=== PATIENT | female | born 1950 | race Caucasian/White ===

== ENCOUNTER → 2016-07-16 | Outpatient (CLI) | payer MEDICARE, OTHER | LOC: RAD 14:32 | PROVIDERS: ATTEND Internal Medicine | DX: R51 Headache (principal) | CPT/HCPCS: 70450 ==

== ENCOUNTER → 2016-09-06 | Outpatient (CLI) | payer MEDICARE, OTHER | LOC: RAD 08:22 | PROVIDERS: ATTEND Internal Medicine | DX: K86.1 Other chronic pancreatitis (principal); K42.9 Umbilical hernia without obstruction or gangrene | CPT/HCPCS: 74150 ==

== ENCOUNTER → 2017-11-27 | Outpatient (CLI) | payer MEDICARE, OTHER ==
--- NOTE | 2017-11-27 09:23 | RADIOLOGY REPORT (SQ) ---
EXAM DESCRIPTION: CT CHEST WITHOUT COMPLETED DATE/TIME: 11/27/2017 8:00 am REASON FOR STUDY: PULMONARY INFILTRATE (R91.8) R91.8 OTHER NONSPECIFIC ABNORMAL FINDING OF LUNG FIE LD COMPARISON: 10/23/2011 TECHNIQUE: CT scan performed of the chest without intravenous contrast. Images reviewed with lung, soft tissue and bone windows. Reconstructed coronal and sagittal MPR images reviewed. All images st ored on PACS. All CT scanners at this facility use dose modulation, iterative reconstruction, and/or weight based d osing when appropriate to reduce radiation dose to as low as reasonably achievable (ALARA). [facility]: Dose Right [facility]: CareDose [facility]: Dose Right [facility]: Teradose 4D [facility]: [employer] RADIATION DOSE: CT Rad equipment meets quality standard of care and radiation dose reduction techniq ues were employed. CTDIvol: 13.3 mGy. DLP: 483 mGy-cm. mGy. LIMITATIONS: No technical limitations. FINDINGS: LUNGS AND PLEURA: Subsegmental airspace disease in the right upper lobe. There is a backg round of chronic scarring in the right upper lobe. Stable mild bronchiectasis right lower lobe. No fibrosis. No effusions. HILAR AND MEDIASTINAL STRUCTURES: Calcified mediastinal and right hilar nodes. HEART AND VASCULAR STRUCTURES: No aneurysm. No pericardial effusion. UPPER ABDOMEN: No significant findings. Limited exam. THYROID AND OTHER SOFT TISSUES: No masses. No adenopathy. BONES: No significant finding. HARDWARE: None in the chest. OTHER: No other significant findings. IMPRESSION: Increasing airspace disease in the right upper lobe on a background of chronic changes. In the appropriate clinical setting this is consistent with superimposed pneumonia. TECHNICAL DOCUMENTATION: JOB ID: [id number] Quality ID # [id number]: Final reports with documentation of one or more dose reduction techniques (e.g., Au tomated exposure control, adjustment of the mA and/or kV according to patient size, use of iterative reconstruction technique) 2010 [employer]- All Rights Reserved Reading location - IP/workstation name: [email or web address]
== END ==
LOC: RAD 07:31
PROVIDERS: ATTEND Internal Medicine Critical Care Medicine
DX: R91.8 Other nonspecific abnormal finding of lung field (principal)
CPT/HCPCS: 71250

== ENCOUNTER → 2018-01-13 | Outpatient (CLI) | payer MEDICARE, OTHER ==
--- NOTE | 2018-01-13 15:25 | RADIOLOGY REPORT (SQ) ---
EXAM DESCRIPTION: CHEST 2 VIEWS COMPLETED DATE/TIME: 01/13/2018 2:27 pm REASON FOR STUDY: COUGH R05 SOB R06.02 COMPARISON: 10/22/2014 EXAM PARAMETERS: NUMBER OF VIEWS: two views TECHNIQUE: Digital Frontal and Lateral radiographic views of the chest acquired. RADIATION DOSE: NA LIMITATIONS: none FINDINGS: LUNGS AND PLEURA: Stable subsegmental linear opacities in the right mid-lower lung zone m ay represent atelectasis or scar. The left lung is clear. Linear opaque density overlies the proxim al in of the left clavicle may be osseous origin. No pneumothorax or pleural effusion. MEDIASTINUM AND HILAR STRUCTURES: No masses or contour abnormalities. HEART AND VASCULAR STRUCTURES: Heart normal size. No evidence for failure. BONES: No acute findings. HARDWARE: None in the chest. OTHER: No other significant finding. IMPRESSION: 1 NO ACUTE RADIOGRAPHIC FINDING IN THE CHEST. Stable linear subsegmental atelectasis or scar in the right mid-lower lung zones since the prior study dated 10/22/2014. TECHNICAL DOCUMENTATION: JOB ID: [id number] [employer]- All Rights Reserved Reading location - IP/workstation name: [email or web address]
== END ==
LOC: RAD 13:55
PROVIDERS: ATTEND Physician Assistant Medical
DX: R06.02 Shortness of breath (principal); R05 Cough
CPT/HCPCS: 71046

== ENCOUNTER → 2018-02-10 | Outpatient (CLI) | payer MEDICARE, OTHER ==
--- NOTE | 2018-02-10 11:50 | WOMENS IMAGING REPORT ---
EXAM DESCRIPTION: U/S EXTREMITY NONVASCULAR COMP COMPLETED DATE/TIME: 02/10/2018 11:09 am REASON FOR STUDY: R22.31 R22.31 LOCALIZED SWELLING, MASS AND LUMP, RIGHT UPPER LIMB COMPARISON: None. TECHNIQUE: Static and real time mac scale ultrasound Doppler spectral analysis, and color Doppler a cquired in the area of the RIGHT elbow. LIMITATIONS: None. FINDINGS: The anterior aspect of the right elbow was scanned (in the area of clinical concern). No solid or cystic masses visualized sonographically. Left elbow was scanned in the same area for comparison purposes. No abnormality visualized. IMPRESSION: 1. NO SIGNIFICANT FINDING IN THE anterior aspect of the Right elbow. Correlation sugges wilma in view of the given history. TECHNICAL DOCUMENTATION: JOB ID: [id number] [employer]- All Rights Reserved Reading location - IP/workstation name: [email or web address]
== END ==
LOC: WI 10:44
PROVIDERS: ATTEND Internal Medicine
DX: R22.31 Localized swelling, mass and lump, right upper limb (principal)
CPT/HCPCS: 76881

== ENCOUNTER → 2018-05-06 | Outpatient (CLI) | payer MEDICARE, OTHER ==
--- NOTE | 2018-05-06 11:45 | RADIOLOGY REPORT (SQ) ---
EXAM DESCRIPTION: CT CHEST WITHOUT COMPLETED DATE/TIME: 05/06/2018 10:10 am REASON FOR STUDY: OTHER DISORDERS OF LUNG (J98.4) J98.4 OTHER DISORDERS OF LUNG COMPARISON: 11/27/2017 TECHNIQUE: CT scan performed of the chest without intravenous contrast. Images reviewed with lung, soft tissue and bone windows. Reconstructed coronal and sagittal MPR images reviewed. All images st ored on PACS. All CT scanners at this facility use dose modulation, iterative reconstruction, and/or weight based d osing when appropriate to reduce radiation dose to as low as reasonably achievable (ALARA). [facility]: Dose Right [facility]: CareDose [facility]: Dose Right [facility]: Teradose 4D [facility]: [employer] RADIATION DOSE: CT Rad equipment meets quality standard of care and radiation dose reduction techniq ues were employed. CTDIvol: 15.2 mGy. DLP: 583 mGy-cm. mGy. LIMITATIONS: No technical limitations. FINDINGS: LUNGS AND PLEURA: Stable areas of peripheral scarring in both lungs. Chronic elevation le ft diaphragm. No effusions. HILAR AND MEDIASTINAL STRUCTURES: Calcified mediastinal and right hilar nodes. HEART AND VASCULAR STRUCTURES: No aneurysm. No pericardial effusion. UPPER ABDOMEN: No significant findings. Limited exam. THYROID AND OTHER SOFT TISSUES: No acute findings. BONES: No significant finding. HARDWARE: None in the chest. OTHER: No other significant findings. IMPRESSION: Stable, chronic changes. TECHNICAL DOCUMENTATION: JOB ID: [id number] Quality ID # [id number]: Final reports with documentation of one or more dose reduction techniques (e.g., Au tomated exposure control, adjustment of the mA and/or kV according to patient size, use of iterative reconstruction technique) 2010 [employer]- All Rights Reserved Reading location - IP/workstation name: [email or web address]
== END ==
LOC: RAD 09:53
PROVIDERS: ATTEND Internal Medicine Critical Care Medicine
DX: J98.4 Other disorders of lung (principal)
CPT/HCPCS: 71250

== ENCOUNTER 2019-10-15 16:30 | Inpatient (IN) | payer MEDICARE, OTHER ==
[2019-10-15] MEDS ORDERED: CEFTRIAXONE 2 GM/D5W RTU 2 GM/50 ML RTUPB IV ONE (17:02)
[2019-10-15] MEDS: NORMAL SALINE 1000 ML 1,000 ML IV PRN ×2 (17:05→18:09)
[2019-10-15 17:23] LABS: VENOUS BLOOD BASE EXCESS 26.4 mmol/L; VENOUS BLOOD HCO3 53.6 mmol/L (20-32); VENOUS BLOOD PH 7.58 (7.30-7.42)
[2019-10-15 17:28] LABS: APPEARANCE,URINE SLIGHTLY-CLOUDY; BILIRUBIN,URINE NEGATIVE (NEGATIVE); COLOR,URINE YELLOW; GLUCOSE, URINE NEGATIVE (NEGATIVE); KETONES,URINE NEGATIVE (NEGATIVE); LEUKOCYTE ESTERASE,URINE MODERATE (NEGATIVE); NITRITE,URINE NEGATIVE (NEGATIVE); PROTEIN,URINE 100 mg/dL (NEGATIVE); URINE SPECIFIC GRAVITY 1.013; UROBILINOGEN,URINE NEGATIVE mg/dL (<2.0)
[2019-10-15 17:30] LABS: ALKALINE PHOSPHATASE 115 U/L (38-126); ASPARTATE AMINO TRANSFERASE 76 U/L (14-36); BILIRUBIN,DIRECT 0.3 mg/dL (0.0-0.4); BLOOD UREA NITROGEN 98 mg/dL (7-20); CALCIUM 7.9 mg/dL (8.4-10.2); CHLORIDE 59 mmol/L (98-107); GLUCOSE 156 mg/dL (75-110); TOTAL PROTEIN 7.3 g/dL (6.3-8.2)
--- NOTE | 2019-10-15 17:48 | RADIOLOGY REPORT (SQ) ---
EXAM DESCRIPTION: CHEST SINGLE VIEW IMAGES COMPLETED DATE/TIME: 10/15/2019 5:37 pm REASON FOR STUDY: fever COMPARISON: 01/13/2018 EXAM PARAMETERS: NUMBER OF VIEWS: One view. TECHNIQUE: Single frontal radiographic view of the chest acquired. RADIATION DOSE: NA LIMITATIONS: None. FINDINGS: LUNGS AND PLEURA: Parenchymal opacity at the left base with left effusion. MEDIASTINUM AND HILAR STRUCTURES: No masses. Contour normal. HEART AND VASCULAR STRUCTURES: Heart normal in size. Normal vasculature. BONES: No acute findings. HARDWARE: None in the chest. OTHER: No other significant finding. IMPRESSION: Left effusion and parenchymal opacity. TECHNICAL DOCUMENTATION: JOB ID: [id number] 2010 [employer]- All Rights Reserved Reading location - IP/workstation name: [email or web address]
[2019-10-15 17:49] LABS: ANION GAP 17 (5-19); HEMATOCRIT 47.5 % (36.0-47.0); HEMOGLOBIN 16.4 g/dL (12.0-15.5); MEAN CORPUSCULAR HEMOGLOBIN 31.1 pg (27.0-33.4); MEAN CORPUSCULAR HGB CONC 34.5 g/dL (32.0-36.0); MEAN CORPUSCULAR VOLUME 90 fl (80-97); PLATELET COUNT 431 10^3/uL (150-450); POTASSIUM 2.1 mmol/L (3.6-5.0); RED BLOOD COUNT 5.26 10^6/uL (3.72-5.28); RED CELL DISTRIBUTION WIDTH 14.4 % (11.5-14.0); WHITE BLOOD COUNT 20.9 10^3/uL (4.0-10.5)
[2019-10-15 17:50] LABS: CARBON DIOXIDE 53 mmol/L (22-30)
--- NOTE | 2019-10-15 17:50 | RADIOLOGY REPORT (SQ) ---
EXAM DESCRIPTION: CT HEAD WITHOUT IMAGES COMPLETED DATE/TIME: 10/15/2019 5:37 pm REASON FOR STUDY: aloc COMPARISON: 07/16/2016 TECHNIQUE: Axial images acquired through the brain without intravenous contrast. Images reviewed wi th bone, brain and subdural windows. Additional sagittal and coronal reconstructions were generated. Images stored on PACS. All CT scanners at this facility use dose modulation, iterative reconstruction, and/or weight based d osing when appropriate to reduce radiation dose to as low as reasonably achievable (ALARA). [facility]: Dose Right [facility]: CareDose [facility]: Dose Right [facility]: Teradose 4D [facility]: [employer] RADIATION DOSE: CT Rad equipment meets quality standard of care and radiation dose reduction techniq ues were employed. CTDIvol: 53.2 mGy. DLP: 964 mGy-cm. mGy. LIMITATIONS: None. FINDINGS: VENTRICLES: Normal size and contour. CEREBRUM: No masses. No hemorrhage. No midline shift. No evidence for acute infarction. Normal gra y/white matter differentiation. No areas of low density in the white matter. CEREBELLUM: No masses. No hemorrhage. No alteration of density. No evidence for acute infarction. EXTRAAXIAL SPACES: No fluid collections. No masses. ORBITS AND GLOBE: No intra- or extraconal masses. Normal contour of globe without masses. CALVARIUM: No fracture. PARANASAL SINUSES: No fluid or mucosal thickening. SOFT TISSUES: No mass or hematoma. OTHER: No other significant finding. IMPRESSION: NORMAL BRAIN CT WITHOUT CONTRAST. EVIDENCE OF ACUTE STROKE: NO. COMMENT: Quality ID # [id number]: Final reports with documentation of one or more dose reduction techniques (e.g., Automated exposure control, adjustment of the mA and/or kV according to patient size, use of iterative reconstruction technique) TECHNICAL DOCUMENTATION: JOB ID: [id number] 2010 [employer]- All Rights Reserved Reading location - IP/workstation name: [email or web address]
[2019-10-15 17:57] LABS: CREATINE KINASE 5651 U/L (30-135)
[2019-10-15] MEDS ORDERED: POTASSI CL 20 MEQ/50 ML RIDER 20 MEQ/50 ML RTUPB IV ONE (18:00)
[2019-10-15] MEDS ORDERED: CEFEPIME 1 GM/D5W RTU 1 GM/50 ML RTUPB IV ONE (18:02)
--- NOTE | 2019-10-15 18:13 | ER Document Report ---
Entered by HERBERTH EDGE SCRIBE 10/15/19 [id number] Acting as scribe for:DEBRA HERNANDEZ DO ED General - General Chief Complaint: Unresponsive Stated Complaint: UNRESPONSIVE Time Seen by Provider: 10/15/19 16:59 Information source: Emergency Med Personnel Cannot obtain history due to: Unstable vital signs Notes: This 69-year-old female presents to the emergency department via EMS unresponsive. As per family, patient has chronic respiratory failure. Patient went to see her physician three days ago. Family stated that she was prescribed lasix for her lower extremity swelling. Patient was reportedly "delusional" two days ago and has been unresponsive since yesterday morning. Patient is on 3 L of oxygen at home. A full HPI is unobtainable due to patient condition. TRAVEL OUTSIDE OF THE [place] IN LAST 30 DAYS: No - Related Data Allergies/Adverse Reactions: codeine Allergy (Severe, Verified 10/15/19 17:45) Hives Iodinated Contrast Media [IV Dye, Iodine Containing] Allergy (Severe, Verified 10/23/11 08:19) Anaphylaxis Penicillins Allergy (Verified 02/24/12 08:03) Sulfa (Sulfonamide Antibiotics) Allergy (Verified 02/24/12 08:03) Past Medical History - General Cannot obtain history due to: Unstable vital signs - Social History Smoking Status: Unknown if Ever Smoked Family History: Reviewed & Not Pertinent Pulmonary Medical History: Reports: Hx COPD Past Surgical History: Reports: Hx Cardiac Surgery - stent placed Review of Systems - Review of Systems -: Yes ROS unobtainable due to patient's medical condition Physical Exam - Vital signs Vitals: Resp BP Pulse Ox 33 H 81/51 L 94 10/15/19 16:49 10/15/19 16:49 10/15/19 16:49 - Notes Notes: Physical Exam: General: Alert, appears older than stated age. Disheveled and Unkempt. HEENT: Atraumatic. PERRL. Extraocular movements intact. Oropharynx clear. Dry mucous membranes with thrush. Neck: Supple. Non-tender. Respiratory: No respiratory distress. Diminished breath sounds bilaterally but equal. Cardiovascular: Regular rate and rhythm. Abdominal: Morbidly Obese. Non-tender. No distension. Normal Bowel Sounds. Back: No gross abnormalities. Extremities: Moves all four extremities. Upper extremities: Normal inspection. Normal ROM. Lower extremities: Normal inspection. No edema. Normal ROM. Neurological: Responds to a spoken voice. Skin: Warm. Dry. Normal color. Course - Re-evaluation Re-evalutation: 10/15/19 18:17 MDM 69 year old female with multiple medical problems arrives from home with illness worsening over about 2 days. Poor po intake and poorly responsive at home for a day. Febrile upon arrival and Urine appears concentrated with acute kidney injury. Also left lung effusion adn ? infiltrate. Stage 1 decub on buttocks and electrolyte abnormality. Spoke with hospitalist team and Dr. Barnett will graciously see and evaluate for admission. - Vital Signs Vital signs: Temp Pulse Resp BP Pulse Ox 27 H 123/56 L 98 10/15/19 19:01 10/15/19 19:00 10/15/19 19:01 - Laboratory Result Diagrams: 10/15/19 17:00 10/15/19 17:00 Laboratory results interpreted by me: 10/15/19 10/15/19 10/15/19 16:58 17:00 17:00 WBC 20.9 H Hgb 16.4 H Hct 47.5 H RDW 14.4 H Seg Neuts % (Manual) 83 H Band Neutrophils % 1 L Lymphocytes % (Manual) 10 L Monocytes % (Manual) 2 L Abs Neuts (Manual) 17.6 H VBG pH VBG HCO3 Sodium 128.6 L Potassium 2.1 L* Chloride 59 L Carbon Dioxide 53 H* BUN 98 H Creatinine 3.84 H Est GFR ( Amer) 14 L Est GFR (MDRD) Non-Af 12 L Glucose 156 H Calcium 7.9 L Magnesium 4.6 H* AST 76 H Creatine Kinase 5651 H Urine Protein 100 H Urine Blood SMALL H Ur Leukocyte Esterase MODERATE H 10/15/19 17:00 WBC Hgb Hct RDW Seg Neuts % (Manual) Band Neutrophils % Lymphocytes % (Manual) Monocytes % (Manual) Abs Neuts (Manual) VBG pH 7.58 H VBG HCO3 53.6 H Sodium Potassium Chloride Carbon Dioxide BUN Creatinine Est GFR ( Amer) Est GFR (MDRD) Non-Af Glucose Calcium Magnesium AST Creatine Kinase Urine Protein Urine Blood Ur Leukocyte Esterase - Diagnostic Test Radiology reviewed: Image reviewed, Reports reviewed - EKG Interpretation by Me EKG shows normal: Sinus rhythm Rhythm: NSR - NSR L axis 82 BPM Poor R wave progression no st elevation or dep ression my interpretation. [place]rombie/QRS: Left axis deviation Critical Care Note - Critical Care Note Total time excluding time spent on procedures (mins): 30 Discharge - Discharge Clinical Impression: Acute kidney injury, Encephalopathy acute, Hypokalemia UTI (urinary tract infection) Qualifiers: Urinary tract infection type: site unspecified Hematuria presence: with hematuria Qualified Code(s): N39.0 - Urinary tract infection, site not specified Rhabdomyolysis Qualifiers: Rhabdomyolysis type: non-traumatic Qualified Code(s): M62.82 - Rhabdomyolysis Condition: Critical Disposition: ADMITTED INPATIENT Admitting Provider: Anibal Unit Admitted: IMCU I personally performed the services described in the documentation, reviewed and edited the documentation which was dictated to the scribe in my presence, and it accurately records my words and actions.
[2019-10-15] MEDS ORDERED: ONDANSETRON HCL INJ/PF 4 MG/2 ML SDV IV PRN (18:56)
[2019-10-15] MEDS ORDERED: ACETAMINOPHEN 325 MG TABLET PO PRN (18:56)
[2019-10-15] MEDS ORDERED: IPRATROPIUM/ALBUTEROL 0.5-2.5 MG/3 ML AMPUL NEB PRN (18:56)
[2019-10-15] MEDS ORDERED: RINGERS SOLUTION,LACTATED 1,000 ML IV PRN (18:56)
[2019-10-15] MEDS ORDERED: ONDANSETRON 4 MG TAB.RAPDIS PO PRN (18:56)
[2019-10-15 19:04] LABS: ABSOLUTE LYMPHOCYTES# (MANUAL) 2.9 10^3/uL (0.5-4.7); ABSOLUTE MONOCYTES # (MANUAL) 0.4 10^3/uL (0.1-1.4); BAND NEUTROPHILS % (MANUAL) 1 % (3-5); BASOPHILS % (MANUAL) 0 % (0-2); EOSINOPHILS % (MANUAL) 0 % (0-6); LYMPHOCYTES % (MANUAL) 10 % (13-45); MONOCYTES % (MANUAL) 2 % (3-13); SEGMENTED NEUTROPHILS % (MAN) 83 % (42-78); TOTAL CELLS COUNTED 100
[2019-10-15 19:08] LABS: ANISOCYTOSIS SLIGHT; OVALOCYTES SLIGHT; PLATELET COMMENT ADEQUATE; PLATELET LARGE PRESENT; POIKILOCYTOSIS SLIGHT
--- NOTE | 2019-10-15 19:14 | PDOC H&P ---
History of Present Illness Admission Date/PCP: 10/15/19 18:41 ELEANOR LOCKWOOD MD History of Present Illness: NATTY KHAN is a 69 year old female with past medical history of CAD, HTN, CO PD on chronic 3 L nasal cannula, recurrent UTIs, chronic pain, chronic BLE edema who presented via EMS after family noticed patient became unresponsive 2 days [employer] IN [employer]. 3 days [employer] IN [employer] patient's PCP prescribed Lasix for her lower extremity edema, the next day she became unresponsive and family waited to see if she would become more responsive. When she did not become responsive over the next 2 days, family called EMS who brought patient to ED. She was found have severe CELESTINO, UTI, rhabdomyolysis with CK of 5600, stage I decubitus ulcer POA and was persistently somnolent. Potassium was extremely low and she was given runs of potassium and bicarb in the ER. Family members each stated they wanted patient to be full code. Of note, she is on multiple sedating medications including narcotics and Seroquel all of which have been held on admission. She will be admitted to [facility] with telemetry. Past Medical History Cardiac Medical History: Reports: Congestive Heart Failure, Hyperlipidema, Hypertension Pulmonary Medical History: Reports: Chronic Obstructive Pulmonary Disease (COPD) Past Surgical History Past Surgical History: Reports: Appendectomy, Cholecystectomy Social History Information Source: Emergency Med Personnel, [facility], 1928–1983 Records Lives with: Family Smoking Status: Former Smoker Electronic Cigarette use?: No - Advance Directive Resuscitation Status: Full Code Surrogate healthcare decision maker:: Spouse Family History Family History: Reviewed & Not Pertinent Parental Family History Reviewed: No Children Family History Reviewed: No Sibling(s) Family History Reviewed.: No Medication/Allergy Home Medications: Butalb/Acetaminophen/Caffeine [Fioricet (50-325-40 mg) Tablet] 1 tab PO DAILY PRN 10/15/19 Clopidogrel Bisulfate [Plavix 75 mg Tablet] 75 mg PO DAILY 10/15/19 Ergocalciferol (Vitamin D2) [Vitamin D2] 1 cap PO ONCE 10/15/19 Ergocalciferol (Vitamin D2) [Vitamin D2] 1 cap PO Q1 10/15/19 Estrogens,Conjugated [Premarin 0.3 Mg Tablet] 0.3 mg PO DAILY 10/15/19 Furosemide [Lasix 40 mg Tablet] 40 mg PO BID 10/15/19 Isosorbide Mononitrate [Imdur 30 mg Tablet.er] 30 mg PO DAILY 10/15/19 Levothyroxine Sodium 75 mcg PO DAILY 10/15/19 Lipase/Protease/Amylase [Creon Dr 6,000 Units Capsule] 6 cap PO TID 10/15/19 Loratadine [Claritin] 10 mg PO DAILY 10/15/19 Metoprolol Tartrate [Lopressor 50 mg Tablet] 50 mg PO BID 10/15/19 Oxybutynin Chloride [Oxybutynin Chloride ER] 5 mg PO DAILY 10/15/19 Oxycodone HCl [Oxycodone HCl ER] 15 mg PO TID PRN 10/15/19 Pantoprazole Sodium 40 mg PO DAILY 10/15/19 Promethazine HCl [Phenergan 25 mg Tablet] 25 mg PO DAILY PRN 10/15/19 Quetiapine Fumarate [Quetiapine Fumarate ER] 400 mg PO QHS 10/15/19 Ranolazine [Ranexa] 1,000 mg PO BID 10/15/19 Rosuvastatin Calcium [Crestor] 20 mg PO DAILY 10/15/19 Allergies/Adverse Reactions: codeine Allergy (Severe, Verified 10/15/19 17:45) Hives Iodinated Contrast Media [IV Dye, Iodine Containing] Allergy (Severe, Verified 10/23/11 08:19) Anaphylaxis Penicillins Allergy (Verified 02/24/12 08:03) Sulfa (Sulfonamide Antibiotics) Allergy (Verified 02/24/12 08:03) Review of Systems All systems: reviewed and no additional remarkable complaints except as stated - Review of systems unobtainable due to patient's altered mental status and inability to answer questions. Physical Exam Vital Signs: Temp Pulse Resp BP Pulse Ox 29 H 133/61 H 97 10/15/19 18:30 10/15/19 18:30 10/15/19 18:30 Intake & Output 10/14/19 10/15/19 10/16/19 06:59 06:59 06:59 Intake Total 1050 Balance 1050 Weight 90.6 kg General appearance: PRESENT: no acute distress, cooperative, disheveled, obese Head exam: PRESENT: atraumatic, normocephalic Eye exam: PRESENT: conjunctiva pink Mouth exam: PRESENT: moist Respiratory exam: PRESENT: crackles - Very scant crackles at left base otherwise clear, no wheezing. ABSENT: rales, rhonchi, wheezes Cardiovascular exam: PRESENT: RRR. ABSENT: diastolic murmur, rubs, systolic murmur GI/Abdominal exam: PRESENT: normal bowel sounds, soft. ABSENT: distended, guard ing, mass, organolmegaly, rebound, tenderness Rectal exam: PRESENT: deferred Extremities exam: PRESENT: pedal edema Neurological exam: PRESENT: altered. ABSENT: alert, awake, oriented to person, oriented to place, oriented to time, oriented to situation Skin exam: PRESENT: dry, intact, warm, other - Stage I sacral decubitus ulcer Results Laboratory Results: 10/15/19 17:00 10/15/19 10/15/19 10/15/19 16:58 17:00 17:00 Seg Neutrophils % Not Reportable VBG pH VBG pCO2 VBG HCO3 VBG Base Excess Sodium 128.6 L Potassium 2.1 L* Chloride 59 L Carbon Dioxide 53 H* Anion Gap 17 BUN 98 H Creatinine 3.84 H Est GFR ( Amer) 14 L Glucose 156 H Lactic Acid Calcium 7.9 L Magnesium 4.6 H* Total Bilirubin 1.0 AST 76 H Alkaline Phosphatase 115 Total Protein 7.3 Albumin 4.0 Urine Color YELLOW Urine Appearance SLIGHTLY-CLOUDY Urine pH 7.0 Ur Specific [place] 1.013 Urine Protein 100 H Urine Glucose (UA) NEGATIVE Urine Ketones NEGATIVE Urine Blood SMALL H Urine Nitrite NEGATIVE Ur Leukocyte Esterase MODERATE H Urine WBC (Auto) 30 Urine RBC (Auto) 9 10/15/19 10/15/19 17:00 17:00 Seg Neutrophils % VBG pH 7.58 H VBG pCO2 59.0 VBG HCO3 53.6 H VBG Base Excess 26.4 Sodium Potassium Chloride Carbon Dioxide Anion Gap BUN Creatinine Est GFR ( Amer) Glucose Lactic Acid 2.1 Calcium Magnesium Total Bilirubin AST Alkaline Phosphatase Total Protein Albumin Urine Color Urine Appearance Urine pH Ur Specific [place] Urine Protein Urine Glucose (UA) Urine Ketones Urine Blood Urine Nitrite Ur Leukocyte Esterase Urine WBC (Auto) Urine RBC (Auto) 10/15/19 17:00 Creatine Kinase 5651 H Impressions: Chest X-Ray 10/15/19 17:00 IMPRESSION: Left effusion and parenchymal opacity. Head CT 10/15/19 17:01 IMPRESSION: NORMAL BRAIN CT WITHOUT CONTRAST. EVIDENCE OF ACUTE STROKE: NO. Assessment and Plan - Diagnosis (1) Acute metabolic encephalopathy Is this a current diagnosis for this admission?: Yes Plan: Likely source is UTI and severe dehydration Treat underlying sources with IV fluids and antibiotics Check ammonia CT head did not show acute abnormalities Maintain oxygen saturation 89 to 94% and patient with COPD on chronic 3 L nasal cannula at home (2) Acute kidney injury Is this a current diagnosis for this admission?: Yes Plan: Creatinine significantly elevated on admission Highly suspect prerenal etiology given she was just started on Lasix IV fluids, cautiously Trend BMP (3) UTI (urinary tract infection) Qualifiers: Urinary tract infection type: site unspecified Hematuria presence: with hematuria Qualified Code(s): N39.0 - Urinary tract infection, site not specified; R31.9 - Hematuria, unspecified Is this a current diagnosis for this admission?: Yes Plan: History of recurrent UTIs per family Likely has urinary retention chronically, stopped oxybutynin and consider not restarting Burnett catheter placed in ED Urine culture pending Cefepime IV (4) Hypokalemia Is this a current diagnosis for this admission?: Yes Plan: Severely low potassium on admission Replete IV as patient cannot take p.o. on admission Trend BMP (5) Rhabdomyolysis Qualifiers: Rhabdomyolysis type: non-traumatic Qualified Code(s): M62.82 - Rhabdomyolysis Is this a current diagnosis for this admission?: Yes Plan: Due to immobility of approximately 2 days Trend CK daily IV fluids Trend BMP and watch for renal recovery (6) CAD (coronary artery disease) Is this a current diagnosis for this admission?: Yes Plan: Continue Plavix home dose (7) HTN (hypertension) Is this a current diagnosis for this admission?: Yes Plan: Holding BP meds until volume resuscitated, can likely restart tomorrow (8) COPD (chronic obstructive pulmonary disease) Is this a current diagnosis for this admission?: Yes Plan: No wheezing on admission Not in acute exacerbation Duo nebs PRN (9) Chronic respiratory failure with hypoxia, on home O2 therapy Is this a current diagnosis for this admission?: Yes (10) Encephalopathy acute Is this a current diagnosis for this admission?: Yes - Time Time Spent with patient: 35 or more minutes Medications reviewed and adjusted accordingly: Yes - Inpatient Certification Based on my medical assessment, after consideration of the patient's comorbidities, presenting symptoms, or acuity I expect that the services needed warrant INPATIENT care.: Yes I certify that my determination is in accordance with my understanding of Medicare's requirements for reasonable and necessary INPATIENT services [42 CFR 412.3e].: Yes Medical Necessity: Significant Comorbidiites Make Outpatient Treatment Too Risky, Need Close Monitoring Due to Risk of Patient Decompensation, Need For IV Fluids, Need for IV Antibiotics, Risk of Complication if Not Cared For in Hospital, Risk of Diagnosis Which Will Require Inpatient Eval/Care/Monitoring
--- NOTE | 2019-10-15 19:15 | ADVANCED CARE ---
- Diagnosis (1) Acute metabolic encephalopathy Diagnosis Current: Yes (2) Acute kidney injury Diagnosis Current: Yes (3) UTI (urinary tract infection) Diagnosis Current: Yes (4) Hypokalemia Diagnosis Current: Yes (5) Rhabdomyolysis Diagnosis Current: Yes (6) CAD (coronary artery disease) Diagnosis Current: Yes (7) HTN (hypertension) Diagnosis Current: Yes (8) COPD (chronic obstructive pulmonary disease) Diagnosis Current: Yes (9) Chronic respiratory failure with hypoxia, on home O2 therapy Diagnosis Current: Yes (10) Encephalopathy acute Diagnosis Current: Yes Attendance: Patient and family meeting in ER Resuscitation Status: Full Code Discussion: CODE STATUS discussed with family and patient present in the ER. Multiple family members stated they would like patient to be full code. Time Spent: 17 minutes
--- NOTE | 2019-10-15 19:31 | EKG REPORT ---
SEVERITY:- ABNORMAL ECG - SINUS RHYTHM LEFT ANTERIOR FASCICULAR BLOCK ABNORMAL T, CONSIDER ISCHEMIA, DIFFUSE LEADS PROLONGED QT INTERVAL : Confirmed by: Kj Boogie MD 15-Oct-2019 19:31:32
[2019-10-15 21:15] LABS: BLOOD UREA NITROGEN 94 mg/dL (7-20); CHLORIDE 71 mmol/L (98-107); GLUCOSE 137 mg/dL (75-110)
[2019-10-15] MEDS: METOPROLOL TARTRATE 50 MG TABLET PO SCH (21:25)
[2019-10-15 21:30] LABS: ANION GAP 12 (5-19)
[2019-10-15 21:32] LABS: CALCIUM 6.8 mg/dL (8.4-10.2); POTASSIUM 2.1 mmol/L (3.6-5.0)
[2019-10-15 21:33] LABS: CARBON DIOXIDE 47 mmol/L (22-30)
[2019-10-15 21:34] LABS: CREATINE KINASE 5058 U/L (30-135)
[2019-10-15] MEDS: HEPARIN SOD (PORCINE) 5,000 UNIT/ML 1 ML VIAL SUBCUT SCH (21:41)
[2019-10-15] MEDS: RINGERS SOLUTION,LACTATED 1,000 ML IV PRN (21:49)
[2019-10-15] MEDS: POTASSI CL 20 MEQ/50 ML RIDER 20 MEQ/50 ML RTUPB IV SCH ×2 (21:55→23:41)
[2019-10-15] MEDS ORDERED: CEFEPIME 2 GM/D5W RTU 2 GM/50 ML RTUPB IV SCH (22:00)
[2019-10-15] MEDS ORDERED: ATORVASTATIN CALCIUM 40 MG TABLET PO SCH (22:00)
[2019-10-15] MEDS ORDERED: ACETAMINOPHEN 650 MG SUPP.RECT PR PRN (23:45)
[2019-10-16] MEDS: POTASSI CL 20 MEQ/50 ML RIDER 20 MEQ/50 ML RTUPB IV SCH (01:38)
[2019-10-16] MEDS: RINGERS SOLUTION,LACTATED 1,000 ML IV PRN (03:53)
[2019-10-16] MEDS: HEPARIN SOD (PORCINE) 5,000 UNIT/ML 1 ML VIAL SUBCUT SCH ×3 (05:05→22:42)
[2019-10-16 05:58] LABS: PHOSPHORUS 3.9 mg/dL (2.5-4.5)
[2019-10-16 06:14] LABS: ABSOLUTE LYMPHOCYTES (AUTO) 2.7 10^3/uL (0.5-4.7); ABSOLUTE MONOCYTES (AUTO) 1.6 10^3/uL (0.1-1.4); ABSOLUTE NEUT (AUTO) 11.2 10^3/uL (1.7-8.2); BASOPHILS % (AUTO) 0.3 % (0-2); EOSINOPHILS % (AUTO) 0.1 % (0-6); HEMATOCRIT 42.8 % (36.0-47.0); HEMOGLOBIN 14.7 g/dL (12.0-15.5); LYMPHOCYTES % (AUTO) 17.2 % (13-45); MEAN CORPUSCULAR HGB CONC 34.2 g/dL (32.0-36.0); MEAN CORPUSCULAR VOLUME 91 fl (80-97); MONOCYTES % (AUTO) 10.3 % (3-13); PLATELET COUNT 266 10^3/uL (150-450); RED BLOOD COUNT 4.72 10^6/uL (3.72-5.28); RED CELL DISTRIBUTION WIDTH 14.7 % (11.5-14.0); SEGMENTED NEUTROPHILS % (AUTO) 72.1 % (42-78); TOTAL CELLS COUNTED % (AUTO) 100 %; WHITE BLOOD COUNT 15.5 10^3/uL (4.0-10.5)
[2019-10-16 06:23] LABS: BLOOD UREA NITROGEN 76 mg/dL (7-20); CALCIUM 7.7 mg/dL (8.4-10.2); CHLORIDE 81 mmol/L (98-107); GLUCOSE 115 mg/dL (75-110)
[2019-10-16 06:31] LABS: ANION GAP 10 (5-19); CARBON DIOXIDE 45 mmol/L (22-30); POTASSIUM 2.3 mmol/L (3.6-5.0)
[2019-10-16] MEDS: POTASSIUM CHLORIDE 20 MEQ/50 ML RTU IV SCH ×2 (06:44→09:17)
--- NOTE | 2019-10-16 09:18 | RADIOLOGY REPORT (SQ) ---
EXAM DESCRIPTION: CHEST SINGLE VIEW IMAGES COMPLETED DATE/TIME: 10/16/2019 9:07 am REASON FOR STUDY: volume overload COMPARISON: AP view of the chest from 10/15/2019 and 1734 hours. EXAM PARAMETERS: NUMBER OF VIEWS: One view. TECHNIQUE: An AP view of the chest was obtained. RADIATION DOSE: NA LIMITATIONS: None. FINDINGS: LUNGS AND PLEURA: The dense opacity in the inferior left hemithorax that obscures the cont our of the left hemidiaphragm and blunts the left lateral costophrenic sulcus is unchanged. MEDIASTINUM AND HILAR STRUCTURES: Stable mediastinal and hilar contours. HEART AND VASCULAR STRUCTURES: Stable cardiac silhouette. BONES: No acute findings. HARDWARE: The tip and side hole of the enteric tube project past the gastroesophageal junction and wi thin the gastric lumen. OTHER: No other finding. IMPRESSION: 1. The tip of the enteric tube projects past the gastroesophageal junction within the ga stric lumen. 2. Unchanged dense opacity in the inferior left hemithorax that could represent a combination of ple ural fluid, atelectasis and/or pneumonia. TECHNICAL DOCUMENTATION: JOB ID: [id number] 2010 Sequence- All Rights Reserved Reading location - IP/workstation name: [email or web address]
[2019-10-16] MEDS ORDERED: PHARMACY COMMUNICATION ORDER MC NR (09:30)
[2019-10-16] MEDS ORDERED: POTASSIUM CHLORIDE 20 MEQ PACKET PO SCH (09:30)
[2019-10-16] MEDS ORDERED: AMYLASE PO SCH (10:00)
[2019-10-16] MEDS ORDERED: (PENDING PHARMACY ID) (Ranolazine [Ranexa] 1,000 MG) PO SCH (10:00)
[2019-10-16] MEDS ORDERED: (PENDING PHARMACY ID) (Rosuvastatin Calcium [Crestor] 20 MG) PO SCH (10:00)
[2019-10-16] MEDS ORDERED: RANOLAZINE 500 MG TAB.SR.12H PO SCH (10:00)
[2019-10-16] MEDS ORDERED: CLOPIDOGREL BISULFATE 75 MG TABLET PO SCH (10:00)
[2019-10-16] MEDS ORDERED: LEVOTHYROXINE SODIUM 0.075 MG TABLET PO SCH (10:00)
[2019-10-16] MEDS ORDERED: PROTEASE PO SCH (10:00)
[2019-10-16] MEDS ORDERED: ISOSORBIDE MONONITRATE 30 MG TAB.ER.24H PO SCH (10:00)
[2019-10-16] MEDS ORDERED: PANTOPRAZOLE SODIUM 40 MG TABLET.DR PO SCH (10:00)
[2019-10-16] MEDS ORDERED: LIPASE PO SCH (10:00)
[2019-10-16] MEDS ORDERED: ONDANSETRON 4 MG TAB.RAPDIS NG PRN (10:30)
[2019-10-16] MEDS: PANTOPRAZOLE SODIUM 40 MG PACKET.DR NG SCH (10:48)
[2019-10-16] MEDS: METOPROLOL TARTRATE 50 MG TABLET NG SCH ×2 (10:48→22:42)
[2019-10-16] MEDS: LEVOTHYROXINE SODIUM 0.075 MG TABLET NG SCH (10:49)
[2019-10-16] MEDS: CLOPIDOGREL BISULFATE 75 MG TABLET NG SCH (10:49)
--- NOTE | 2019-10-16 13:14 | XCELERA REPORT ---
[address] [address] Transthoracic Echocardiogram Report Name: NATTY KHAN Age: 69 yrs Gender: Female : 1950 Patient Status: Inpatient Patient Location: [address] [place], [place] [address] Study Date: 10/16/2019 10:17 AM Height: 63 in Weight: 198 lb BSA: 1.9 m2 Reason For Study: CHF Ordering Physician: CARTER SHAFER Performed By: Macie Haq Interpretation Summary Interpretation Summary TRANS THORACIC ECHOCARDIOGRAM FINDINGS: Technically difficult study. LEFT VENTRICLE: LV Systolic function: LVEF is felt to be within normal limits. Best estimate is approximately LVEF is 60 %. LV Diastolic Function: Grade II diastolic dysfunction noted. Wall motion : No definite regional wall motion abnormalities are noted. Left ventricular chamber size : is within normal limit. Left ventricular wall thickness : is increased indicative of Mild LVH. INTERVENTRICULAR SEPTUM: no evidence of VSD noted. No asymmetric hypertrophy noted. RIGHT VENTRICLE: RV systolic function : is felt to be within normal limit. Right Ventricle Size : borderline dilated. LEFT ATRIUM size : mildly dilated. RIGHT ATRIUM size : is within normal limit. INTER ATRIAL SEPTUM : No definite atrial septal defect noted however a small PFO could be missed. AORTIC ROOT : seems to be within normal limits. Ascending aorta is not well visualized. INFERIOR VENA CAVA: was not well visualized. VALVES: MITRAL VALVE : Leaflets are mildly thickened. Mobility seems to be within normal limits. Mitral Regurgitation : Trace mitral regurgitation is noted. Mitral Stenosis: No mitral stenosis noted. Mitral valve prolapse : none noted. AORTIC VALVE: seems to be trileaflet with thickening but adequate excursion. Aortic stenosis : No aortic stenosis noted. Aortic regurgitation : No aortic incompetence noted. TRICUSPID VALVE : mobility and structures within normal limit. Tricuspid stenosis : no tricuspid stenosis noted. Tricuspid regurgitation : Mild tricuspid regurgitation noted. Estimated RVSP : Estimated at approximately 35 mmHg consistent with mild pulmonary hypertension. PULMONARY VALVE : was not well visualized but no significant abnormalities suspected. Pulmonary stenosis : no significant pulmonary stenosis noted. Pulmonary regurgitation : no significant pulmonary regurgitation noted. MASSES AND THROMBUS : No definite intracardiac thrombus or masses are noted. PERICARDIUM: Trace to a small pericardial effusion was noted. IMPRESSION : 1. Normal LVEF. 2. Mild LVH noted. 3. Grade II Diastolic Dysfunction noted. 4. No significant valvular stenosis or regurgitation noted. 5. Trace to small pericardial effusion noted. 6. Possible small left pleural effusion. 7. Mild pulmonary hypertension noted. MMode/2D Measurements & Calculations RVDd: 1.8 cm LVIDd: 4.2 cm FS: 50.6 % Ao root diam: 2.9 cm IVSd: 1.1 cm LVIDs: 2.1 cm EDV(Teich): 78.4 ml LVPWd: 0.96 cm ESV(Teich): 14.0 ml Ao root area: 6.7 cm2 LA dimension: 2.8 cm EF(Teich): 82.2 % Doppler Measurements & Calculations MV E max yee: MV P1/2t max yee: Ao V2 max: LV V1 max P.3 cm/sec 61.7 cm/sec 190.0 cm/sec 5.7 mmHg MV A max yee: MV P1/2t: 82.9 msec Ao max PG: LV V1 max: 75.1 cm/sec MVA(P1/2t): 2.7 cm2 14.4 mmHg 119.4 cm/sec MV E/A: 0.80 MV dec slope: 218.1 cm/sec2 MV dec time: 0.28 sec PA V2 max: TR max yee: MV P1/2t-pr_phl: 114.1 cm/sec 268.8 cm/sec 82.9 msec PA max P.2 mmHgTR max P.9 mmHg : CARTER SHAFER Shyamal
[2019-10-16 13:48] LABS: BLOOD UREA NITROGEN 57 mg/dL (7-20); CALCIUM 8.2 mg/dL (8.4-10.2); CHLORIDE 84 mmol/L (98-107); GLUCOSE 111 mg/dL (75-110)
[2019-10-16] MEDS ORDERED: POTASSIUM CHLORIDE 20 MEQ PACKET NG SCH (14:00)
[2019-10-16 14:08] LABS: ANION GAP 7 (5-19)
[2019-10-16 14:11] LABS: POTASSIUM 2.4 mmol/L (3.6-5.0)
[2019-10-16 14:12] LABS: CARBON DIOXIDE 47 mmol/L (22-30)
[2019-10-16] MEDS: METOPROLOL TARTRATE 50 MG TABLET PO SCH (14:30)
[2019-10-16] MEDS: POTASSIUM CHLORIDE 20 MEQ PACKET NG SCH ×2 (14:43→22:42)
--- NOTE | 2019-10-16 17:49 | PDOC PROGRESS REPORT ---
Subjective Progress Note for:: 10/16/19 Subjective:: Patient still quite somnolent today but is waking up about more intermittently. I was able to get her to open her eyes and say hello to me today. She seem to be getting volume overloaded given that overnight she was started on a second set of IV fluids in addition to the IV fluids I had already prescribed her the day before. Both of these were running simultaneously all night. I had nursing stop all fluids and give her potassium repletion via an NG tube but they placed today. This also seemed to make the patient a bit more lively when they placed the NG tube. I did repeat chest x-ray that showed unchanged dense opacity on the left hemithorax inferiorly possibly fluid or pneumonia. Echocardiogram was done which showed diastolic dysfunction but good EF. WBC lower, potassium slightly higher, creatinine lower, CK lower, A1c at 5.4. We are continuing to trend BMP. Reason For Visit: CELESTINO POA, RHADBOMYOLYSIS Physical Exam Vital Signs: Temp Pulse Resp BP Pulse Ox 97.6 F 78 18 132/56 H 99 10/16/19 08:06 10/16/19 14:00 10/16/19 08:06 10/16/19 08:06 10/16/19 12:08 Intake & Output 10/15/19 10/16/19 10/17/19 06:59 06:59 06:59 Intake Total 3302 980 Output Total 875 Balance 2427 980 Weight 90.1 kg General appearance: PRESENT: no acute distress, obese Head exam: PRESENT: atraumatic, normocephalic Eye exam: PRESENT: conjunctiva pink Mouth exam: PRESENT: moist Respiratory exam: PRESENT: crackles. ABSENT: rales, rhonchi, wheezes Cardiovascular exam: PRESENT: RRR. ABSENT: diastolic murmur, rubs, systolic murmur GI/Abdominal exam: PRESENT: normal bowel sounds, soft. ABSENT: distended, guarding, mass, organolmegaly, rebound, tenderness Rectal exam: PRESENT: deferred Neurological exam: PRESENT: altered. ABSENT: alert, awake Skin exam: PRESENT: dry, intact, warm Results Laboratory Results: 10/16/19 05:21 10/16/19 13:01 10/15/19 10/15/19 10/15/19 17:00 17:00 17:00 WBC 20.9 H RBC 5.26 Hgb 16.4 H Hct 47.5 H MCV 90 MCH 31.1 MCHC 34.5 RDW 14.4 H Plt Count 431 Seg Neutrophils % Not Reportable Sodium 128.6 L Potassium 2.1 L* Chloride 59 L Carbon Dioxide 53 H* Anion Gap 17 BUN 98 H Creatinine 3.84 H Est GFR ( Amer) 14 L Glucose 156 H Lactic Acid 2.1 Calcium 7.9 L Phosphorus Magnesium 4.6 H* Total Bilirubin 1.0 AST 76 H Alkaline Phosphatase 115 Total Protein 7.3 Albumin 4.0 10/15/19 10/16/19 10/16/19 20:16 05:21 05:21 WBC 15.5 H RBC 4.72 Hgb 14.7 Hct 42.8 MCV 91 MCH 31.0 MCHC 34.2 RDW 14.7 H Plt Count 266 Seg Neutrophils % 72.1 Sodium 129.9 L Potassium 2.1 L* Chloride 71 L Carbon Dioxide 47 H* Anion Gap 12 BUN 94 H Creatinine 2.98 H Est GFR ( Amer) 19 L Glucose 137 H Lactic Acid Calcium 6.8 L* Phosphorus 3.9 Magnesium 4.2 H* Total Bilirubin AST Alkaline Phosphatase Total Protein Albumin 10/16/19 10/16/19 05:21 13:01 WBC RBC Hgb Hct MCV MCH MCHC RDW Plt Count Seg Neutrophils % Sodium 135.8 L 137.8 Potassium 2.3 L* 2.4 L* Chloride 81 L 84 L Carbon Dioxide 45 H* 47 H* Anion Gap 10 7 BUN 76 H 57 H Creatinine 2.04 H 1.20 Est GFR ( Amer) 29 L 54 L Glucose 115 H 111 H Lactic Acid Calcium 7.7 L 8.2 L Phosphorus Magnesium Total Bilirubin AST Alkaline Phosphatase Total Protein Albumin 10/15/19 10/15/19 17:00 20:16 Creatine Kinase 5651 H 5058 H Impressions: Head CT 10/15/19 17:01 IMPRESSION: NORMAL BRAIN CT WITHOUT CONTRAST. EVIDENCE OF ACUTE STROKE: NO. Chest X-Ray 10/16/19 00:00 IMPRESSION: 1. The tip of the enteric tube projects past the gastroesophageal junction within the gastric lumen. 2. Unchanged dense opacity in the inferior left hemithorax that could represent a combination of pleural fluid, atelectasis and/or pneumonia. Assessment and Plan - Diagnosis (1) Acute metabolic encephalopathy Is this a current diagnosis for this admission?: Yes Plan: Likely source is UTI and severe dehydration Treat underlying sources with IV fluids and antibiotics Check ammonia CT head did not show acute abnormalities Maintain oxygen saturation 89 to 94% and patient with COPD on chronic 3 L nasal cannula at home 10/16/2019 All sedating medications remain stopped, patient seems to be waking up a bit Suspect this is primarily due to UTI and sedating medications (2) Acute kidney injury Is this a current diagnosis for this admission?: Yes Plan: Creatinine significantly elevated on admission Highly suspect prerenal etiology given she was just started on Lasix IV fluids, cautiously Trend BMP 10/16/2019 Creatinine lower, improving Continue trending BMP Stopped IV fluids for possible volume overload (3) UTI (urinary tract infection) Qualifiers: Urinary tract infection type: site unspecified Hematuria presence: with hematuria Qualified Code(s): N39.0 - Urinary tract infection, site not specified; R31.9 - Hematuria, unspecified Is this a current diagnosis for this admission?: Yes Plan: History of recurrent UTIs per family Likely has urinary retention chronically, stopped oxybutynin and consider not restarting Burnett catheter placed in ED Urine culture pending Cefepime IV continued 10/15/2021 Urine culture preliminary growing gram-negative rods, follow-up for results (4) Hypokalemia Is this a current diagnosis for this admission?: Yes (5) Rhabdomyolysis Qualifiers: Rhabdomyolysis type: non-traumatic Qualified Code(s): M62.82 - Rhabdomyolysis Is this a current diagnosis for this admission?: Yes (6) CAD (coronary artery disease) Is this a current diagnosis for this admission?: Yes (7) HTN (hypertension) Is this a current diagnosis for this admission?: Yes (8) COPD (chronic obstructive pulmonary disease) Is this a current diagnosis for this admission?: Yes (9) Chronic respiratory failure with hypoxia, on home O2 therapy Is this a current diagnosis for this admission?: Yes Plan: Gradually improving Supplemental oxygen as needed Duo nebs as needed (10) Encephalopathy acute Is this a current diagnosis for this admission?: Yes - Time Time Spent with patient: 35 or more minutes - Inpatient Certification Based on my medical assessment, after consideration of the patient's comorbidities, presenting symptoms, or acuity I expect that the services needed warrant INPATIENT care.: Yes I certify that my determination is in accordance with my understanding of Medicare's requirements for reasonable and necessary INPATIENT services [42 CFR 412.3e].: Yes Medical Necessity: Significant Comorbidiites Make Outpatient Treatment Too Risky, Need Close Monitoring Due to Risk of Patient Decompensation, Need for IV Antibiotics, Risk of Complication if Not Cared For in Hospital, Risk of Diagnosis Which Will Require Inpatient Eval/Care/Monitoring
[2019-10-16] MEDS: CEFEPIME 1 GM/D5W RTU 1 GM/50 ML RTUPB IV SCH (18:18)
[2019-10-16] MEDS ORDERED: MORPHINE SULFATE 10 MG/ML INJ ONE (21:18)
[2019-10-16] MEDS: MORPHINE SULFATE 10 MG/ML INJ IV PRN (21:23)
[2019-10-16] MEDS ORDERED: ACETAMINOPHEN 650 MG SUPP.RECT PR PRN (21:30)
[2019-10-16] MEDS ORDERED: ATORVASTATIN CALCIUM 40 MG TABLET NG SCH (22:00)
[2019-10-17] MEDS: MORPHINE SULFATE 10 MG/ML INJ IV PRN ×3 (02:00→19:46)
[2019-10-17 05:11] LABS: ABSOLUTE BASOPHILS # (AUTO) 0.1 10^3/uL (0.0-0.2); ABSOLUTE EOSINOPHILS # (AUTO) 0.1 10^3/uL (0.0-0.6); ABSOLUTE LYMPHOCYTES (AUTO) 2.9 10^3/uL (0.5-4.7); ABSOLUTE MONOCYTES (AUTO) 1.1 10^3/uL (0.1-1.4); ABSOLUTE NEUT (AUTO) 7.6 10^3/uL (1.7-8.2); BASOPHILS % (AUTO) 0.7 % (0-2); HEMATOCRIT 36.8 % (36.0-47.0); HEMOGLOBIN 12.7 g/dL (12.0-15.5); LYMPHOCYTES % (AUTO) 24.2 % (13-45); MEAN CORPUSCULAR HEMOGLOBIN 31.4 pg (27.0-33.4); MEAN CORPUSCULAR HGB CONC 34.4 g/dL (32.0-36.0); MEAN CORPUSCULAR VOLUME 91 fl (80-97); MONOCYTES % (AUTO) 9.6 % (3-13); PLATELET COUNT 263 10^3/uL (150-450); RED BLOOD COUNT 4.03 10^6/uL (3.72-5.28); RED CELL DISTRIBUTION WIDTH 14.4 % (11.5-14.0); SEGMENTED NEUTROPHILS % (AUTO) 64.5 % (42-78); TOTAL CELLS COUNTED % (AUTO) 100 %; WHITE BLOOD COUNT 11.8 10^3/uL (4.0-10.5)
[2019-10-17] MEDS: HEPARIN SOD (PORCINE) 5,000 UNIT/ML 1 ML VIAL SUBCUT SCH ×3 (05:33→22:24)
[2019-10-17] MEDS: POTASSIUM CHLORIDE 20 MEQ PACKET NG SCH ×3 (05:33→22:24)
[2019-10-17] MEDS: CLOPIDOGREL BISULFATE 75 MG TABLET NG SCH (10:08)
[2019-10-17] MEDS: PANTOPRAZOLE SODIUM 40 MG PACKET.DR NG SCH (10:08)
[2019-10-17] MEDS: METOPROLOL TARTRATE 50 MG TABLET NG SCH ×2 (10:08→22:24)
[2019-10-17] MEDS: LEVOTHYROXINE SODIUM 0.075 MG TABLET NG SCH (10:08)
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
[2019-10-17] MEDS: CEFEPIME 1 GM/D5W RTU 1 GM/50 ML RTUPB IV SCH (17:27)
[2019-10-18] MEDS: MORPHINE SULFATE 10 MG/ML INJ IV PRN ×4 (00:27→20:21)
[2019-10-18] MEDS: HEPARIN SOD (PORCINE) 5,000 UNIT/ML 1 ML VIAL SUBCUT SCH ×3 (05:44→22:01)
[2019-10-18] MEDS: POTASSIUM CHLORIDE 20 MEQ PACKET NG SCH ×3 (05:44→22:00)
[2019-10-18 06:19] LABS: HEMATOCRIT 37.4 % (36.0-47.0); MEAN CORPUSCULAR HEMOGLOBIN 31.9 pg (27.0-33.4); MEAN CORPUSCULAR HGB CONC 34.8 g/dL (32.0-36.0); MEAN CORPUSCULAR VOLUME 92 fl (80-97); PLATELET COUNT 211 10^3/uL (150-450); RED BLOOD COUNT 4.07 10^6/uL (3.72-5.28); RED CELL DISTRIBUTION WIDTH 13.9 % (11.5-14.0); WHITE BLOOD COUNT 10.3 10^3/uL (4.0-10.5)
[2019-10-18 06:56] LABS: ABSOLUTE LYMPHOCYTES# (MANUAL) 2.7 10^3/uL (0.5-4.7); ABSOLUTE MONOCYTES # (MANUAL) 1.2 10^3/uL (0.1-1.4); BAND NEUTROPHILS % (MANUAL) 1 % (3-5); BASOPHILS % (MANUAL) 0 % (0-2); EOSINOPHILS % (MANUAL) 6 % (0-6); LYMPHOCYTES % (MANUAL) 24 % (13-45); MONOCYTES % (MANUAL) 12 % (3-13); SEGMENTED NEUTROPHILS % (MAN) 55 % (42-78); TOTAL CELLS COUNTED 100
[2019-10-18 06:58] LABS: PLATELET CLUMPS PRESENT; PLATELET COMMENT ADEQUATE; RBC MORPHOLOGY COMMENT NORMO-CYTIC/CHROMIC; TOXIC GRANULATION SLIGHT; TOXIC VACUOLATION PRESENT
[2019-10-18] MEDS: METOPROLOL TARTRATE 50 MG TABLET NG SCH ×2 (10:42→22:01)
[2019-10-18] MEDS: PANTOPRAZOLE SODIUM 40 MG PACKET.DR NG SCH (10:42)
[2019-10-18] MEDS: CLOPIDOGREL BISULFATE 75 MG TABLET NG SCH (10:42)
[2019-10-18] MEDS: LEVOTHYROXINE SODIUM 0.075 MG TABLET NG SCH (10:42)
[2019-10-18] MEDS: CEPHALEXIN 500 MG CAPSULE PO SCH ×2 (12:03→17:14)
--- NOTE | 2019-10-18 13:31 | PDOC PROGRESS REPORT ---
Subjective Progress Note for:: 10/18/19 Subjective:: No adverse events overnight. No new complaints. Vital signs been stable. She is eating and drinking without difficulty. She wants to get up out of the bed because her "butt hurts." Reason For Visit: CELESTINO POA, RHADBOMYOLYSIS Physical Exam Vital Signs: Temp Pulse Resp BP Pulse Ox 98.1 F 77 16 134/54 H 100 10/18/19 03:36 10/18/19 07:00 10/18/19 03:36 10/18/19 03:36 10/18/19 03:36 Intake & Output 10/17/19 10/18/19 10/19/19 06:59 06:59 06:59 Intake Total 2490 4281 Output Total 2392 2910 Balance 98 1371 Weight 95.7 kg 98.5 kg General appearance: PRESENT: no acute distress, obese, well-developed, well- nourished Respiratory exam: PRESENT: Diminished but clear bilaterally, no use of accessory muscles. ABSENT: rales, rhonchi, wheezes Cardiovascular exam: PRESENT: RRR. ABSENT: diastolic murmur, rubs, systolic murmur GI/Abdominal exam: PRESENT: normal bowel sounds, soft. ABSENT: distended, guarding, mass, organolmegaly, rebound, tenderness Extremities exam: PRESENT: pedal edema Neurological exam: PRESENT: alert, awake, oriented to person, oriented to place. ABSENT: oriented to time, oriented to situation Psychiatric exam: PRESENT: appropriate affect, normal mood Skin exam: PRESENT: dry, intact, warm Results Laboratory Results: 10/18/19 05:36 10/16/19 13:01 10/18/19 05:36 WBC 10.3 RBC 4.07 Hgb 13.0 Hct 37.4 MCV 92 MCH 31.9 MCHC 34.8 RDW 13.9 Plt Count 211 Seg Neutrophils % Not Reportable 10/15/19 16:58 Catheterized Urine Urine Culture - Final Escherichia Coli 10/15/19 10/15/19 17:00 20:16 Creatine Kinase 5651 H 5058 H Impressions: Head CT 10/15/19 17:01 IMPRESSION: NORMAL BRAIN CT WITHOUT CONTRAST. EVIDENCE OF ACUTE STROKE: NO. Chest X-Ray 10/16/19 00:00 IMPRESSION: 1. The tip of the enteric tube projects past the gastroesophageal junction within the gastric lumen. 2. Unchanged dense opacity in the inferior left hemithorax that could represent a combination of pleural fluid, atelectasis and/or pneumonia. Assessment and Plan - Diagnosis (1) Acute kidney injury Is this a current diagnosis for this admission?: Yes Plan: Resolved. BUN still elevated so were going to encourage fluids for another day (2) Acute metabolic encephalopathy Is this a current diagnosis for this admission?: Yes Plan: Now resolved, thought to be due to dehydration, multiple electrolyte disturbances, and urinary tract infection. (3) COPD (chronic obstructive pulmonary disease) Qualifiers: COPD type: emphysema Emphysema type: centrilobular Qualified Code(s): J43.2 - Centrilobular emphysema Is this a current diagnosis for this admission?: Yes Plan: No wheezing on admission Not in acute exacerbation Duo nebs PRN -Likely a chronic CO2 retainer (4) Chronic respiratory failure with hypoxia, on home O2 therapy Is this a current diagnosis for this admission?: Yes Plan: Stable on her usual level of oxygen support (5) Hypokalemia Is this a current diagnosis for this admission?: Yes Plan: Magnesium was actually elevated. She is getting potassium supplement 3 times a day. (6) UTI (urinary tract infection) Qualifiers: Urinary tract infection type: site unspecified Hematuria presence: with hematuria Qualified Code(s): N39.0 - Urinary tract infection, site not specified; R31.9 - Hematuria, unspecified Is this a current diagnosis for this admission?: Yes Plan: Antibiotics have been switched to Keflex for a pansensitive E. coli - Time Time Spent with patient: 15-24 minutes
[2019-10-19] MEDS: MORPHINE SULFATE 10 MG/ML INJ IV PRN ×3 (00:22→08:45)
[2019-10-19] MEDS: CEPHALEXIN 500 MG CAPSULE PO SCH ×3 (00:22→14:27)
[2019-10-19] MEDS: POTASSIUM CHLORIDE 20 MEQ PACKET NG SCH (06:06)
[2019-10-19] MEDS: HEPARIN SOD (PORCINE) 5,000 UNIT/ML 1 ML VIAL SUBCUT SCH ×2 (06:07→13:25)
[2019-10-19] MEDS: LEVOTHYROXINE SODIUM 0.075 MG TABLET NG SCH (09:18)
[2019-10-19] MEDS: METOPROLOL TARTRATE 50 MG TABLET NG SCH (09:18)
[2019-10-19] MEDS: PANTOPRAZOLE SODIUM 40 MG PACKET.DR NG SCH (09:18)
[2019-10-19] MEDS: CLOPIDOGREL BISULFATE 75 MG TABLET NG SCH (09:18)
[2019-10-19 11:21] LABS: ANION GAP 5 (5-19); BLOOD UREA NITROGEN 15 mg/dL (7-20); CALCIUM 9.1 mg/dL (8.4-10.2); CARBON DIOXIDE 31 mmol/L (22-30); CHLORIDE 96 mmol/L (98-107); GLUCOSE 125 mg/dL (75-110); POTASSIUM 5.4 mmol/L (3.6-5.0)
[2019-10-19 13:47] VITALS: BP 130/58
--- NOTE | 2019-10-19 16:05 | PDOC DISCHARGE SUMMARY ---
Impression - Admit/DC Date/PCP Admission Date/Primary Care Provider: 10/15/19 18:41 ELEANOR LOCKWOOD MD Discharge Date: 10/19/19 - Discharge Diagnosis (1) Acute kidney injury Is this a current diagnosis for this admission?: Yes (2) Acute metabolic encephalopathy Is this a current diagnosis for this admission?: Yes (3) COPD (chronic obstructive pulmonary disease) Is this a current diagnosis for this admission?: Yes (4) Chronic respiratory failure with hypoxia, on home O2 therapy Is this a current diagnosis for this admission?: Yes (5) Hypokalemia Is this a current diagnosis for this admission?: Yes (6) UTI (urinary tract infection) Is this a current diagnosis for this admission?: Yes - Additional Information Resuscitation Status: Full Code Discharge Diet: Cardiac Discharge Activity: Balance Activity w/Rest, Supervised Activity Referrals: ELEANOR LOCKWOOD MD [Primary Care Provider] - Follow up as needed JESSICA ORANTES MD [ACTIVE STAFF] - 10/26/19 10:30 am (+ ) Prescriptions: Cephalexin Monohydrate [Keflex 500 mg Capsule] 500 mg PO Q6 #24 capsule Home Medications: Butalb/Acetaminophen/Caffeine [Fioricet (50-325-40 mg) Tablet] 1 tab PO DAILY PRN 10/15/19 Ergocalciferol (Vitamin D2) [Vitamin D2] 1 cap PO DIAZ@1000 10/15/19 Estrogens,Conjugated [Premarin 0.3 mg Tablet] 0.3 mg PO ASDIR PRN 10/15/19 Isosorbide Mononitrate [Imdur 30 mg Tablet.er] 30 mg PO DAILY 10/15/19 Levothyroxine Sodium 75 mcg PO Q6AM 10/15/19 Lipase/Protease/Amylase [Marie Vu 6,000 Units Capsule] 3 cap PO .SNACKS PRN 10/15/19 Lipase/Protease/Amylase [Marie Vu 6,000 Units Capsule] 6 cap PO MEALS 10/15/19 Loratadine [Claritin] 10 mg PO DAILY 10/15/19 Metoprolol Tartrate [Lopressor 50 mg Tablet] 50 mg PO Q12 10/15/19 Nitroglycerin [Nitrostat 0.4 mg (1/150 Gr) Tabs 25/Bottle] 1 tab SL Q5MP PRN 10/15/19 Pantoprazole Sodium 40 mg PO DAILY 10/15/19 Quetiapine Fumarate [Quetiapine Fumarate ER] 800 mg PO QHS 10/15/19 Ranolazine [Ranexa] 1,000 mg PO BID 10/15/19 Rosuvastatin Calcium [Crestor] 20 mg PO DAILY 10/15/19 Albuterol Sulfate [Proair HFA Inhalation Aerosol 8.5 gm MDI] 2 puff IH Q4HP PRN 10/16/19 Fluticasone/Salmeterol [Advair 250-50 Diskus 14 Dose/Diskus] 1 inh IH Q12 10/16/19 Polyethylene Glycol 3350 17 gm PO DAILYP PRN 10/16/19 Cephalexin Monohydrate [Keflex 500 mg Capsule] 500 mg PO Q6 #24 capsule 10/19/19 Clopidogrel Bisulfate [Plavix 75 mg Tablet] 75 mg NG DAILY tablet 10/19/19 Furosemide [Lasix 40 mg Tablet] 40 mg PO DAILY #0 10/19/19 History of Present Illiness History of Present Illness: NATTY KHAN is a 69 year old female with past medical history of CAD, HTN, COPD on chronic 3 L nasal cannula, recurrent UTIs, chronic pain, chronic BLE edema who presented via EMS after family noticed patient became unresponsive 2 days PROGRAMS DIRECTOR. 3 days PROGRAMS DIRECTOR patient's PCP prescribed Lasix for her lower extremity edema, the next day she became unresponsive and family waited to see if she would become more responsive. When she did not become responsive over the next 2 days, family called EMS who brought patient to ED. She was found have severe CELESTINO, UTI, rhabdomyolysis with CK of 5600, stage I decubitus ulcer POA and was persistently somnolent. Potassium was extremely low and she was given runs of potassium and bicarb in the ER. Family members each stated they wanted patient to be full code. Of note, she is on multiple sedating medications including narcotics and Seroquel all of which have been held on admission. She will be admitted to [facility] with telemetry. Hospital Course Hospital Course: She responded to IV fluids and antibiotics. She wound up growing a pansensitive E. coli of the urine and will complete a course of Keflex. She required chronic correction of her potassium which was achieved with an oral supplement. She initially had to have stuff put down in the NG tube but as her mental status improved she was able to have this removed and was able to take foods and medications by mouth. We had her evaluated by physical therapy and she actually did fairly well. We have arranged for home health. Her labs and examination were reassuring and she was discharged in stable condition. Physical Exam Vital Signs: Temp Pulse Resp BP Pulse Ox 98.1 F 88 18 123/58 L 99 10/19/19 13:14 10/19/19 13:14 10/19/19 13:14 10/19/19 13:14 10/19/19 13:14 Intake & Output 10/18/19 10/19/19 10/20/19 06:59 06:59 06:59 Intake Total 4281 3659 472 Output Total 2910 1980 Balance 1371 1679 472 Weight 98.5 kg 94.4 kg General appearance: PRESENT: no acute distress, obese, well-developed, well- nourished Respiratory exam: PRESENT: Diminished but clear bilaterally, no use of accessory muscles. ABSENT: rales, rhonchi, wheezes Cardiovascular exam: PRESENT: RRR. ABSENT: diastolic murmur, rubs, systolic murmur GI/Abdominal exam: PRESENT: normal bowel sounds, soft. ABSENT: distended, guarding, mass, organolmegaly, rebound, tenderness Extremities exam: PRESENT: pedal edema Neurological exam: PRESENT: alert, awake, oriented to person, oriented to place. ABSENT: oriented to time, oriented to situation Psychiatric exam: PRESENT: appropriate affect, normal mood Skin exam: PRESENT: dry, intact, warm Results Laboratory Results: WBC 10.3 10^3/uL (4.0-10.5) 10/18/19 05:36 RBC 4.07 10^6/uL (3.72-5.28) 10/18/19 05:36 Hgb 13.0 g/dL (12.0-15.5) 10/18/19 05:36 Hct 37.4 % (36.0-47.0) 10/18/19 05:36 MCV 92 fl (80-97) 10/18/19 05:36 MCH 31.9 pg (27.0-33.4) 10/18/19 05:36 MCHC 34.8 g/dL (32.0-36.0) 10/18/19 05:36 RDW 13.9 % (11.5-14.0) 10/18/19 05:36 Plt Count 211 10^3/uL (150-450) 10/18/19 05:36 Lymph % (Auto) Not Reportable 10/18/19 05:36 [place] % (Auto) Not Reportable 10/18/19 05:36 Eos % (Auto) Not Reportable 10/18/19 05:36 Baso % (Auto) Not Reportable 10/18/19 05:36 Absolute Neuts (auto) Not Reportable 10/18/19 05:36 Absolute Lymphs (auto) Not Reportable 10/18/19 05:36 Absolute Monos (auto) Not Reportable 10/18/19 05:36 Absolute Eos (auto) Not Reportable 10/18/19 05:36 Absolute Basos (auto) Not Reportable 10/18/19 05:36 Total Counted 100 10/18/19 05:36 Seg Neutrophils % Not Reportable 10/18/19 05:36 Seg Neuts % (Manual) 55 % (42-78) 10/18/19 05:36 Band Neutrophils % 1 % (3-5) L 10/18/19 05:36 Lymphocytes % (Manual) 24 % (13-45) 10/18/19 05:36 Atypical Lymphs % 2 % (0) 10/18/19 05:36 Monocytes % (Manual) 12 % (3-13) 10/18/19 05:36 Eosinophils % (Manual) 6 % (0-6) 10/18/19 05:36 Basophils % (Manual) 0 % (0-2) 10/18/19 05:36 Abs Neuts (Manual) 5.8 10^3/uL (1.7-8.2) 10/18/19 05:36 Abs Lymphs (Manual) 2.7 10^3/uL (0.5-4.7) 10/18/19 05:36 Abs Monocytes (Manual) 1.2 10^3/uL (0.1-1.4) 10/18/19 05:36 Absolute Eos (Manual) 0.6 10^3/uL (0.0-0.6) 10/18/19 05:36 Abs Basophils (Manual) 0.0 10^3/uL (0.0-0.2) 10/18/19 05:36 Toxic Granulation SLIGHT 10/18/19 05:36 Toxic Vacuolation PRESENT 10/18/19 05:36 Clumped Platelets PRESENT 10/18/19 05:36 Large Platelets PRESENT 10/15/19 17:00 Platelet Comment ADEQUATE 10/18/19 05:36 Poikilocytosis SLIGHT 10/15/19 17:00 Anisocytosis SLIGHT 10/15/19 17:00 Ovalocytes SLIGHT 10/15/19 17:00 RBC Morph Comment NORMO-CYTIC/CHROMIC 10/18/19 05:36 VBG pH 7.58 (7.30-7.42) H 10/15/19 17:00 VBG pCO2 59.0 mmHg (35-63) 10/15/19 17:00 VBG HCO3 53.6 mmol/L (20-32) H 10/15/19 17:00 VBG Base Excess 26.4 mmol/L 10/15/19 17:00 Sodium 132.0 mmol/L (137-145) L 10/19/19 10:35 Potassium 5.4 mmol/L (3.6-5.0) H 10/19/19 10:35 Chloride 96 mmol/L (98-107) L 10/19/19 10:35 Carbon Dioxide 31 mmol/L (22-30) H 10/19/19 10:35 Anion Gap 5 (5-19) 10/19/19 10:35 BUN 15 mg/dL (7-20) 10/19/19 10:35 Creatinine 0.49 mg/dL (0.52-1.25) L 10/19/19 10:35 Est GFR ( Amer) > 60 (>60) 10/19/19 10:35 Est GFR (MDRD) Non-Af > 60 (>60) 10/19/19 10:35 Glucose 125 mg/dL (75-110) H 10/19/19 10:35 Hemoglobin A1c % 5.4 % (4.7-6.0) 10/16/19 05:21 Lactic Acid 2.1 mmol/L (0.7-2.1) 10/15/19 17:00 Calcium 9.1 mg/dL (8.4-10.2) 10/19/19 10:35 Phosphorus 3.9 mg/dL (2.5-4.5) 10/16/19 05:21 Magnesium 4.2 mg/dL (1.6-2.3) H* 10/16/19 05:21 Total Bilirubin 1.0 mg/dL (0.2-1.3) 10/15/19 17:00 Direct Bilirubin 0.3 mg/dL (0.0-0.4) 10/15/19 17:00 Neonat Total Bilirubin Not Reportable 10/15/19 17:00 Neonat Direct Bilirubin Not Reportable 10/15/19 17:00 Neonat Indirect Bili Not Reportable 10/15/19 17:00 AST 76 U/L (14-36) H 10/15/19 17:00 ALT 26 U/L (<35) 10/15/19 17:00 Alkaline Phosphatase 115 U/L (38-126) 10/15/19 17:00 Ammonia 16.9 umol/L (9-33) 10/17/19 04:58 Creatine Kinase 5058 U/L (30-135) H 10/15/19 20:16 Total Protein 7.3 g/dL (6.3-8.2) 10/15/19 17:00 Albumin 4.0 g/dL (3.5-5.0) 10/15/19 17:00 Urine Color YELLOW 10/15/19 16:58 Urine Appearance SLIGHTLY-CLOUDY 10/15/19 16:58 Urine pH 7.0 (5.0-9.0) 10/15/19 16:58 Ur Specific [place] 1.013 10/15/19 16:58 Urine Protein 100 mg/dL (NEGATIVE) H 10/15/19 16:58 Urine Glucose (UA) NEGATIVE mg/dL (NEGATIVE) 10/15/19 16:58 Urine Ketones NEGATIVE mg/dL (NEGATIVE) 10/15/19 16:58 Urine Blood SMALL (NEGATIVE) H 10/15/19 16:58 Urine Nitrite NEGATIVE (NEGATIVE) 10/15/19 16:58 Urine Bilirubin NEGATIVE (NEGATIVE) 10/15/19 16:58 Urine Urobilinogen NEGATIVE mg/dL (<2.0) 10/15/19 16:58 Ur Leukocyte Esterase MODERATE (NEGATIVE) H 10/15/19 16:58 Urine WBC (Auto) 30 /HPF 10/15/19 16:58 Urine RBC (Auto) 9 /HPF 10/15/19 16:58 U Hyaline Cast (Auto) 1 /LPF 10/15/19 16:58 Urine Bacteria (Auto) 1+ /HPF 10/15/19 16:58 Squamous Epi Cells Auto 20 /HPF 10/15/19 16:58 Urine Mucus (Auto) RARE /LPF 10/15/19 16:58 Urine Ascorbic Acid NEGATIVE (NEGATIVE) 10/15/19 16:58 Impressions: Chest X-Ray 10/15/19 17:00 IMPRESSION: Left effusion and parenchymal opacity. Head CT 10/15/19 17:01 IMPRESSION: NORMAL BRAIN CT WITHOUT CONTRAST. EVIDENCE OF ACUTE STROKE: NO. Chest X-Ray 10/16/19 00:00 IMPRESSION: 1. The tip of the enteric tube projects past the gastroesophageal junction within the gastric lumen. 2. Unchanged dense opacity in the inferior left hemithorax that could represent a combination of pleural fluid, atelectasis and/or pneumonia. Plan Time Spent: Greater than 30 Minutes Stroke Is this a Stroke Patient?: No Acute Heart Failure - Is this a Heart Failure Patient?: No
== END 2019-10-19 14:42 | disposition home health service (06) | DRG 682 ==
LOC: ER 16:30 → EH 18:41 → 3S 21:22
PROVIDERS: ADMIT Internal Medicine; ATTEND Family Medicine
DX: N17.9 Acute kidney failure, unspecified (principal); G93.41 Metabolic encephalopathy; J96.11 Chronic respiratory failure with hypoxia; N39.0 Urinary tract infection, site not specified; M62.82 Rhabdomyolysis; E87.6 Hypokalemia; I25.10 Atherosclerotic heart disease of native coronary artery without angina pectoris; J43.2 Centrilobular emphysema; G89.29 Other chronic pain; B96.20 Unspecified Escherichia coli [E. coli] as the cause of diseases classified elsewhere; E86.0 Dehydration; R33.9 Retention of urine, unspecified; I10 Essential (primary) hypertension; E66.01 Morbid (severe) obesity due to excess calories; L89.301 Pressure ulcer of unspecified buttock, stage 1; Z99.81 Dependence on supplemental oxygen; Z79.899 Other long term (current) drug therapy; Z87.891 Personal history of nicotine dependence; Z79.02 Long term (current) use of antithrombotics/antiplatelets; Z88.2 Allergy status to sulfonamides; Z95.5 Presence of coronary angioplasty implant and graft
CPT/HCPCS: 36415; 70450; 71045; 80048; 80053; 81001; 82140; 82550; 82803; 83036; 83605; 83735; 84100; 85025; 87040; 87086; 87088; 87186; 93005; 93010; 93306; 96365; 96367; 96375; 99291; J0692; J0696; J1644; J2270; J3480; J3490; J7030; J7120

== ENCOUNTER 2019-11-08 11:41 | Inpatient (IN) | payer MEDICARE, OTHER ==
--- NOTE | 2019-11-08 12:01 | ER Document Report ---
ED General - General Chief Complaint: General Weakness Stated Complaint: WEAKNESS Time Seen by Provider: 11/08/19 11:50 Primary Care Provider: ELEANOR LOCKWOOD MD [Primary Care Provider] - Follow up as needed TRAVEL OUTSIDE OF THE [place] IN LAST 30 DAYS: No - HPI Onset: Other - over the last week or so Onset/Duration: Gradual Quality of pain: Achy Associated symptoms: Nausea, Weakness, Other - Dysuria Exacerbated by: Denies Relieved by: Denies Similar symptoms previously: Yes - with prior UTIs Recently seen / treated by doctor: Yes - patient was admitted for a UTI, CELESTINO, Rhabdo, Low K (dced 10/19/19) Notes: 69 year old female with a history of COPD on 3L O2, CHF, HTN, HLD, Frequent UTIs brought to the ER for generalized weakness, pain with urination, and abdominal pains. Of note, the patient was recently admitted here at [facility] for a UTI complicated by CELESTINO, hypokalemia, and Delirium (patient was DCed on course of Keflex then). The patient denies fevers, chills, sweats, vomiting but she has had some nausea at home. The patient tells me she is currently taking Keflex but it is not clear to me if this was from her recent hospital discharge or a new prescription for Keflex. - Related Data Allergies/Adverse Reactions: codeine Allergy (Severe, Verified 11/08/19 12:00) Hives Iodinated Contrast Media [IV Dye, Iodine Containing] Allergy (Severe, Verified 11/08/19 12:00) Anaphylaxis Penicillins Allergy (Verified 11/08/19 12:00) Sulfa (Sulfonamide Antibiotics) Allergy (Verified 11/08/19 12:00) Past Medical History - General Information source: Patient - Social History Smoking Status: Former Smoker Frequency of alcohol use: None Drug Abuse: None Lives with: Family Family History: Reviewed & Not Pertinent - Past Medical History Cardiac Medical History: Reports: Hx Congestive Heart Failure, Hx Hypercholesterolemia, Hx Hypertension Pulmonary Medical History: Reports: Hx COPD Past Surgical History: Reports: Hx Appendectomy, Hx Cardiac Surgery - stent placed, Hx Cholecystectomy Review of Systems - Review of Systems Constitutional: Weakness EENT: No symptoms reported Cardiovascular: No symptoms reported Respiratory: No symptoms reported Gastrointestinal: Abdominal pain, Nausea Genitourinary: Dysuria Female Genitourinary: No symptoms reported Musculoskeletal: No symptoms reported Skin: No symptoms reported Hematologic/Lymphatic: No symptoms reported Neurological/Psychological: No symptoms reported -: Yes All other systems reviewed and negative Physical Exam - Vital signs Vitals: Pulse Ox 95 11/08/19 11:48 - Notes Notes: GENERAL: Well-appearing, well-nourished and in no acute distress. HEAD: Atraumatic, normocephalic. EYES: Pupils equal round and reactive to light, extraocular movements intact, sclera anicteric, conjunctiva are normal. ENT: External ears normal, nares patent, oropharynx clear without exudates. Moist mucous membranes. NECK: Normal range of motion, supple without lymphadenopathy or JVD. LUNGS: Breath sounds clear to auscultation bilaterally and equal. No wheezes rales or rhonchi. HEART: Regular rate and rhythm without murmurs, rubs or gallops. ABDOMEN: Soft, nontender, normoactive bowel sounds. No guarding, no rebound. No masses appreciated. EXTREMITIES: Normal range of motion, no pitting or edema. No clubbing or cya nosis. NEUROLOGICAL: No focal deficits. Normal speech, normal gait. Patient is slightly confused. PSYCH: Normal mood, normal affect. SKIN: Warm, Dry, normal turgor, no rashes or lesions noted. Course - Re-evaluation Re-evalutation: 11/08/19 15:24 The patient was found to have hyponetremia and hypokalemia along with a metabolic alkalosis. The patient is having some mild confusion with her electrolyte disturbances. Patient admitted to step down bed and started on NS @125ml/hr and she was given 40meq of IV K. The patient has a clear chest Xray, unremarkable UA, and CT abd/pelvis (ordered since patient is having abdominal pain) showing no acute process. - Vital Signs Vital signs: Temp Pulse Resp BP Pulse Ox 98.8 F 20 114/102 H 97 11/08/19 11:49 11/08/19 15:00 11/08/19 12:02 11/08/19 15:00 - Laboratory Result Diagrams: 11/08/19 11:58 11/08/19 13:55 Laboratory results interpreted by me: 11/08/19 11/08/19 11/08/19 11:58 12:39 12:45 RDW 14.9 H VBG pH 7.57 H VBG HCO3 54.6 H Sodium Potassium Chloride Carbon Dioxide Glucose Magnesium NT-Pro-B Natriuret Pep Urine Protein 30 H Urine Ketones TRACE H Urine Blood SMALL H 11/08/19 11/08/19 13:55 13:55 RDW VBG pH VBG HCO3 Sodium 116.6 L* Potassium 2.0 L* Chloride < 50 L Carbon Dioxide 58 H* Glucose 146 H Magnesium 2.4 H NT-Pro-B Natriuret Pep 606 H Urine Protein Urine Ketones Urine Blood - Diagnostic Test Radiology reviewed: Image reviewed, Reports reviewed - EKG Interpretation by Me EKG shows normal: [place] Rate: Normal Rhythm: A.Fib [place]/QRS: IVCD Additional EKG results interpreted by me: 11/08/19 15:25 motion artifact noted Discharge - Discharge Clinical Impression: Hyponatremia, Hypokalemia Disposition: ADMITTED INPATIENT Admitting Provider: Anibal (Hospitalist) Unit Admitted: IMCU Referrals: ELEANOR LOCKWOOD MD [Primary Care Provider] - Follow up as needed
[2019-11-08 12:17] LABS: ABSOLUTE BASOPHILS # (AUTO) 0.1 10^3/uL (0.0-0.2); ABSOLUTE LYMPHOCYTES (AUTO) 1.6 10^3/uL (0.5-4.7); ABSOLUTE MONOCYTES (AUTO) 0.6 10^3/uL (0.1-1.4); ABSOLUTE NEUT (AUTO) 7.4 10^3/uL (1.7-8.2); BASOPHILS % (AUTO) 0.5 % (0-2); EOSINOPHILS % (AUTO) 0.2 % (0-6); HEMATOCRIT 41.3 % (36.0-47.0); HEMOGLOBIN 14.6 g/dL (12.0-15.5); LYMPHOCYTES % (AUTO) 16.6 % (13-45); MEAN CORPUSCULAR HEMOGLOBIN 31.2 pg (27.0-33.4); MEAN CORPUSCULAR HGB CONC 35.2 g/dL (32.0-36.0); MEAN CORPUSCULAR VOLUME 89 fl (80-97); MONOCYTES % (AUTO) 5.9 % (3-13); PLATELET COUNT 342 10^3/uL (150-450); RED BLOOD COUNT 4.66 10^6/uL (3.72-5.28); RED CELL DISTRIBUTION WIDTH 14.9 % (11.5-14.0); SEGMENTED NEUTROPHILS % (AUTO) 76.8 % (42-78); TOTAL CELLS COUNTED % (AUTO) 100 %; WHITE BLOOD COUNT 9.6 10^3/uL (4.0-10.5)
[2019-11-08 12:21] LABS: INTERNATIONAL RATION (INR) 0.97; PROTHROMBIN TIME 12.9 SEC (11.4-15.4)
--- NOTE | 2019-11-08 12:44 | RADIOLOGY REPORT (SQ) ---
EXAM DESCRIPTION: CHEST 2 VIEWS IMAGES COMPLETED DATE/TIME: 11/08/2019 12:28 pm REASON FOR STUDY: eval for pneumonia COMPARISON: 10/16/2019 EXAM PARAMETERS: NUMBER OF VIEWS: two views TECHNIQUE: Digital Frontal and Lateral radiographic views of the chest acquired. RADIATION DOSE: NA LIMITATIONS: none FINDINGS: LUNGS AND PLEURA: Chronic changes at the left base slightly improved over previous. Scarr ing on the right. Low lung volumes. MEDIASTINUM AND HILAR STRUCTURES: No masses or contour abnormalities. HEART AND VASCULAR STRUCTURES: Heart normal size. No evidence for failure. BONES: No acute findings. HARDWARE: None in the chest. OTHER: No other significant finding. IMPRESSION: NO ACUTE RADIOGRAPHIC FINDING IN THE CHEST. TECHNICAL DOCUMENTATION: JOB ID: [id number] 2010 [employer]- All Rights Reserved Reading location - IP/workstation name: [email or web address]
[2019-11-08 12:58] LABS: VENOUS BLOOD BASE EXCESS 27.4 mmol/L; VENOUS BLOOD HCO3 54.6 mmol/L (20-32); VENOUS BLOOD PCO2 61.4 mmHg (35-63); VENOUS BLOOD PH 7.57 (7.30-7.42)
[2019-11-08 13:19] LABS: AMORPHOUS SEDIMENT,URINE TRACE /HPF; APPEARANCE,URINE SLIGHTLY-CLOUDY; BILIRUBIN,URINE NEGATIVE (NEGATIVE); COLOR,URINE YELLOW; GLUCOSE, URINE NEGATIVE (NEGATIVE); KETONES,URINE TRACE mg/dL (NEGATIVE); PROTEIN,URINE 30 mg/dL (NEGATIVE); URINE SPECIFIC GRAVITY 1.009; UROBILINOGEN,URINE NEGATIVE mg/dL (<2.0)
[2019-11-08 14:20] LABS: ALBUMIN 4.1 g/dL (3.5-5.0); ALKALINE PHOSPHATASE 98 U/L (38-126); ASPARTATE AMINO TRANSFERASE 32 U/L (14-36); BILIRUBIN,TOTAL 0.5 mg/dL (0.2-1.3); BLOOD UREA NITROGEN 14 mg/dL (7-20); CALCIUM 9.2 mg/dL (8.4-10.2); GLUCOSE 146 mg/dL (75-110); TOTAL PROTEIN 7.3 g/dL (6.3-8.2)
[2019-11-08 14:31] LABS: TROPONIN I 0.014 ng/mL
[2019-11-08 14:34] LABS: CARBON DIOXIDE 58 mmol/L (22-30); CHLORIDE < 50 mmol/L (98-107)
[2019-11-08 14:35] LABS: ANION GAP 9 (5-19)
--- NOTE | 2019-11-08 14:46 | RADIOLOGY REPORT (SQ) ---
EXAM DESCRIPTION: CT ABD/PELVIS NO ORAL OR IV IMAGES COMPLETED DATE/TIME: 11/08/2019 2:27 pm REASON FOR STUDY: eval for cause of abdominal pain COMPARISON: 09/06/2016 TECHNIQUE: CT scan of the abdomen and pelvis performed without intravenous or oral contrast. Images reviewed with lung, soft tissue, and bone windows. Reconstructed coronal and sagittal MPR images revi ewed. All images stored on PACS. All CT scanners at this facility use dose modulation, iterative reconstruction, and/or weight based d osing when appropriate to reduce radiation dose to as low as reasonably achievable (ALARA). [facility]: Dose Right [facility]: CareDose [facility]: Dose Right [facility]: Teradose 4D [facility]: Smart LeftLane Sports RADIATION DOSE: CT Rad equipment meets quality standard of care and radiation dose reduction techniq ues were employed. CTDIvol: 16.7 mGy. DLP: 905 mGy-cm.mGy. LIMITATIONS: None. FINDINGS: LOWER CHEST: No significant findings. No nodules or infiltrates. NON-CONTRASTED LIVER, SPLEEN, ADRENALS: Chronic pneumobilia. No acute findings. PANCREAS: No masses. No peripancreatic inflammatory changes. GALLBLADDER: Surgically absent. RIGHT KIDNEY AND URETER: No suspicious masses. Assessment limited by lack of IV contrast. No signif icant calcifications. No hydronephrosis or hydroureter. LEFT KIDNEY AND URETER: No suspicious masses. Assessment limited by lack of IV contrast. No signifi cant calcifications. No hydronephrosis or hydroureter. AORTA AND RETROPERITONEUM: No aneurysm. No retroperitoneal masses or adenopathy. BOWEL AND PERITONEAL CAVITY: Diffuse diverticulosis. No obvious masses or inflammatory changes. No f ree fluid. APPENDIX: Not visualized. PELVIS, BLADDER, AND ABDOMINAL WALL:No abnormal masses. No free fluid. Full bladder. BONES: No significant findings. OTHER: No other significant finding. IMPRESSION: Diverticulosis without evidence of diverticulitis. COMMENT: Quality ID # [id number]: Final reports with documentation of one or more dose reduction techniques (e.g., Automated exposure control, adjustment of the mA and/or kV according to patient size, use of iterative reconstruction technique) TECHNICAL DOCUMENTATION: JOB ID: [id number] 2010 [employer]- All Rights Reserved Reading location - IP/workstation name: [email or web address]
[2019-11-08] MEDS ORDERED: NORMAL SALINE 1000 ML 1,000 ML IV ONE (14:56)
--- NOTE | 2019-11-08 15:04 | EKG REPORT ---
SEVERITY:- DEFECTIVE ECG - ATRIAL FIBRILLATION, V-RATE 77-87 NONSPECIFIC INTRAVENTRICULAR CONDUCTION DELAY PROBABLE ANTEROSEPTAL INFARCT, AGE INDETERM : Confirmed by: Kj Boogie MD 08-Nov-2019 15:04:03
[2019-11-08] MEDS: POTASSI CL 20 MEQ/50 ML RIDER 20 MEQ/50 ML RTUPB IV SCH ×2 (15:05→16:30)
[2019-11-08] MEDS ORDERED: ONDANSETRON 4 MG TAB.RAPDIS PO PRN (16:23)
[2019-11-08] MEDS ORDERED: IPRATROPIUM/ALBUTEROL 0.5-2.5 MG/3 ML AMPUL NEB PRN (16:23)
[2019-11-08] MEDS ORDERED: ONDANSETRON HCL INJ/PF 4 MG/2 ML SDV IV PRN (16:23)
[2019-11-08] MEDS ORDERED: NORMAL SALINE 1000 ML 1,000 ML IV PRN (16:23)
[2019-11-08 17:38] LABS: BLOOD UREA NITROGEN 14 mg/dL (7-20); GLUCOSE 132 mg/dL (75-110)
--- NOTE | 2019-11-08 17:43 | PDOC H&P ---
History of Present Illness Admission Date/PCP: 11/08/19 16:03 ELEANOR LOCKWOOD MD History of Present Illness: NATTY KHAN is a 69 year old female with past medical history significant for diastolic CHF, HTN, HLD, chronic A. fib, CAD status post stents, COPD who presents with 1 day history of progressive confusion noted by her family. This is occurred in the past and patient was admitted recently after being found down in rhabdomyolysis with CELESTINO, notably dehydrated due to Lasix. Today, her potassium is severely decreased down to 2.0 and her sodium is significantly decreased down to 116.6, also severe hypochloremia. Magnesium is mildly elevated. BNP is only 606, unlikely CHF exacerbation. Ammonia has been ordered. CT abdomen/pelvis did not show any acute abnormalities. Patient admitted for gradual correction of her multiple electrolyte abnormalities. Past Medical History Cardiac Medical History: Reports: Congestive Heart Failure, Hyperlipidema, Hypertension Pulmonary Medical History: Reports: Chronic Obstructive Pulmonary Disease (COPD) Endocrine Medical History: Reports: Diabetes Mellitus Type 2 Past Surgical History Past Surgical History: Reports: Appendectomy, Cholecystectomy Social History Information Source: Patient, Emergency Med Personnel, [facility] Records Lives with: Family Smoking Status: Former Smoker Frequency of Alcohol Use: None Drugs: None Hx Prescription Drug Abuse: No - Advance Directive Resuscitation Status: Full Code Surrogate healthcare decision maker:: Spouse Senthil Khan Family History Family History: Reviewed & Not Pertinent Parental Family History Reviewed: Yes Children Family History Reviewed: Yes Sibling(s) Family History Reviewed.: Yes Medication/Allergy Home Medications: Butalb/Acetaminophen/Caffeine [Fioricet (50-325-40 mg) Tablet] 1 tab PO DAILY PRN 10/15/19 Ergocalciferol (Vitamin D2) [Vitamin D2] 1 cap PO DIAZ@1000 10/15/19 Estrogens,Conjugated [Premarin 0.3 mg Tablet] 0.3 mg PO ASDIR PRN 10/15/19 Isosorbide Mononitrate [Imdur 30 mg Tablet.er] 30 mg PO DAILY 10/15/19 Levothyroxine Sodium 75 mcg PO Q6AM 10/15/19 Lipase/Protease/Amylase [Creon Dr 6,000 Units Capsule] 3 cap PO .SNACKS PRN 10/15/19 Lipase/Protease/Amylase [Creon Dr 6,000 Units Capsule] 6 cap PO MEALS 10/15/19 Loratadine [Claritin] 10 mg PO DAILY 10/15/19 Metoprolol Tartrate [Lopressor 50 mg Tablet] 50 mg PO Q12 10/15/19 Nitroglycerin [Nitrostat 0.4 mg (1/150 Gr) Tabs 25/Bottle] 1 tab SL Q5MP PRN 10/15/19 Pantoprazole Sodium 40 mg PO DAILY 10/15/19 Quetiapine Fumarate [Quetiapine Fumarate ER] 800 mg PO QHS 10/15/19 Ranolazine [Ranexa] 1,000 mg PO BID 10/15/19 Rosuvastatin Calcium [Crestor] 20 mg PO DAILY 10/15/19 Albuterol Sulfate [Proair HFA Inhalation Aerosol 8.5 gm MDI] 2 puff IH Q4HP PRN 10/16/19 Fluticasone/Salmeterol [Advair 250-50 Diskus 14 Dose/Diskus] 1 inh IH Q12 10/16/19 Polyethylene Glycol 3350 17 gm PO DAILYP PRN 10/16/19 Cephalexin Monohydrate [Keflex 500 mg Capsule] 500 mg PO Q6 #24 capsule 10/19/19 Clopidogrel Bisulfate [Plavix 75 mg Tablet] 75 mg NG DAILY tablet 10/19/19 Furosemide [Lasix 40 mg Tablet] 40 mg PO DAILY #0 10/19/19 Allergies/Adverse Reactions: codeine Allergy (Severe, Verified 11/08/19 12:00) Hives Iodinated Contrast Media [IV Dye, Iodine Containing] Allergy (Severe, Verified 11/08/19 12:00) Anaphylaxis Penicillins Allergy (Verified 11/08/19 12:00) Sulfa (Sulfonamide Antibiotics) Allergy (Verified 11/08/19 12:00) Review of Systems All systems: reviewed and no additional remarkable complaints except as stated - Review of systems per HPI, otherwise negative Physical Exam Vital Signs: Temp Pulse Resp BP Pulse Ox 98.8 F 20 114/102 H 97 11/08/19 11:49 11/08/19 15:00 11/08/19 12:02 11/08/19 15:00 Intake & Output 11/07/19 11/08/19 11/09/19 06:59 06:59 06:59 Intake Total 50 Balance 50 Weight 95.254 kg General appearance: PRESENT: no acute distress, cooperative, obese, well- developed, well-nourished Head exam: PRESENT: atraumatic, normocephalic Eye exam: PRESENT: conjunctiva pink Mouth exam: PRESENT: dry mucosa Respiratory exam: PRESENT: clear to auscultation shira. ABSENT: rales, rhonchi, wheezes Cardiovascular exam: PRESENT: RRR. ABSENT: diastolic murmur, rubs, systolic murmur GI/Abdominal exam: PRESENT: normal bowel sounds, soft. ABSENT: distended, guarding, mass, organolmegaly, rebound, tenderness Neurological exam: PRESENT: alert, awake, oriented to person. ABSENT: oriented to place, oriented to time, oriented to situation Psychiatric exam: PRESENT: appropriate affect, normal mood Skin exam: PRESENT: dry, intact, warm Results Laboratory Results: 11/08/19 11:58 11/08/19 11/08/19 11/08/19 11:58 11:58 11:58 WBC 9.6 RBC 4.66 Hgb 14.6 Hct 41.3 MCV 89 MCH 31.2 MCHC 35.2 RDW 14.9 H Plt Count 342 Seg Neutrophils % 76.8 VBG pH Cancelled VBG pCO2 Cancelled VBG HCO3 Cancelled VBG Base Excess Cancelled Sodium Cancelled Potassium Cancelled Chloride Cancelled Carbon Dioxide Cancelled Anion Gap Cancelled BUN Cancelled Creatinine Cancelled Est GFR ( Amer) Cancelled Est GFR (Non-Af Amer) Cancelled Glucose Cancelled Lactic Acid Calcium Cancelled Magnesium Total Bilirubin Cancelled AST Cancelled Alkaline Phosphatase Cancelled Total Protein Cancelled Albumin Cancelled Urine Color Urine Appearance Urine pH Ur Specific [place] Urine Protein Urine Glucose (UA) Urine Ketones Urine Blood Urine RBC (Auto) 11/08/19 11/08/19 11/08/19 11:58 11:58 12:39 WBC RBC Hgb Hct MCV MCH MCHC RDW Plt Count Seg Neutrophils % VBG pH 7.57 H VBG pCO2 61.4 VBG HCO3 54.6 H VBG Base Excess 27.4 Sodium Potassium Chloride Carbon Dioxide Anion Gap BUN Creatinine Est GFR ( Amer) Est GFR (Non-Af Amer) Glucose Lactic Acid 1.2 Calcium Magnesium Cancelled Total Bilirubin AST Alkaline Phosphatase Total Protein Albumin Urine Color Urine Appearance Urine pH Ur Specific [place] Urine Protein Urine Glucose (UA) Urine Ketones Urine Blood Urine RBC (Auto) 11/08/19 11/08/19 11/08/19 12:39 12:45 13:55 WBC RBC Hgb Hct MCV MCH MCHC RDW Plt Count Seg Neutrophils % VBG pH VBG pCO2 VBG HCO3 VBG Base Excess Sodium Cancelled Potassium Cancelled Chloride Cancelled Carbon Dioxide Cancelled Anion Gap Cancelled BUN Cancelled Creatinine Cancelled Est GFR ( Amer) Cancelled Est GFR (Non-Af Amer) Cancelled Glucose Cancelled Lactic Acid 0.8 Calcium Cancelled Magnesium Cancelled Total Bilirubin Cancelled AST Cancelled Alkaline Phosphatase Cancelled Total Protein Cancelled Albumin Cancelled Urine Color YELLOW Urine Appearance SLIGHTLY-CLOUDY Urine pH 7.0 Ur Specific [place] 1.009 Urine Protein 30 H Urine Glucose (UA) NEGATIVE Urine Ketones TRACE H Urine Blood SMALL H Urine RBC (Auto) 12 11/08/19 13:55 WBC RBC Hgb Hct MCV MCH MCHC RDW Plt Count Seg Neutrophils % VBG pH VBG pCO2 VBG HCO3 VBG Base Excess Sodium 116.6 L* Potassium 2.0 L* Chloride < 50 L Carbon Dioxide 58 H* Anion Gap 9 BUN 14 Creatinine 0.67 Est GFR ( Amer) > 60 Est GFR (Non-Af Amer) Glucose 146 H Lactic Acid Calcium 9.2 Magnesium 2.4 H Total Bilirubin 0.5 AST 32 Alkaline Phosphatase 98 Total Protein 7.3 Albumin 4.1 Urine Color Urine Appearance Urine pH Ur Specific [place] Urine Protein Urine Glucose (UA) Urine Ketones Urine Blood Urine RBC (Auto) 11/08/19 11/08/19 11/08/19 11:58 11:58 12:39 Troponin I Cancelled Cancelled NT-Pro-B Natriuret Pep Cancelled Cancelled 11/08/19 13:55 Troponin I 0.014 NT-Pro-B Natriuret Pep 606 H Impressions: Chest X-Ray 11/08/19 12:07 IMPRESSION: NO ACUTE RADIOGRAPHIC FINDING IN THE CHEST. Abdomen/Pelvis CT 11/08/19 14:01 IMPRESSION: Diverticulosis without evidence of diverticulitis. Assessment and Plan - Diagnosis (1) Acute metabolic encephalopathy Is this a current diagnosis for this admission?: Yes Plan: Likely due to severe electrolyte abnormalities, possibly elevated ammonia in the setting of metabolic alkalosis due to diuretic Stop Lasix, do not restart Slow infusion of normal saline with frequent BMP checks Check ammonia Every 2 hours neuro checks IMCU admission If no improvement, CT head; no history of falls per ED and family and patient CT abdomen/pelvis unremarkable for acute findings (2) Metabolic alkalosis Is this a current diagnosis for this admission?: Yes Plan: Due to diuretic and solute loss IV fluids Trend BMP (3) Hyponatremia Is this a current diagnosis for this admission?: Yes Plan: Severe, down to 116 on admission Check BMP every 4 hours Nephrology consult would be helpful but they are not available right now at this hospital Normal saline infusion at 75 cc/h; this rate will need to be titrated based on follow-up BMP values for sodium No diuretics (4) Hypokalemia Is this a current diagnosis for this admission?: Yes Plan: Down to 2.0 on admission due to diuretic Replete IV and p.o. Recheck BMP (5) CAD (coronary artery disease) Is this a current diagnosis for this admission?: Yes (6) COPD (chronic obstructive pulmonary disease) Qualifiers: COPD type: emphysema Emphysema type: centrilobular Qualified Code(s): J43.2 - Centrilobular emphysema Is this a current diagnosis for this admission?: Yes Plan: No exacerbation (7) Chronic respiratory failure with hypoxia, on home O2 therapy Is this a current diagnosis for this admission?: Yes Plan: Uses 3 L nasal cannula at baseline (8) HTN (hypertension) Is this a current diagnosis for this admission?: Yes - Time Time Spent with patient: 35 or more minutes Medications reviewed and adjusted accordingly: Yes Anticipated discharge: Home - Inpatient Certification Based on my medical assessment, after consideration of the patient's comorb idities, presenting symptoms, or acuity I expect that the services needed warrant INPATIENT care.: Yes I certify that my determination is in accordance with my understanding of Medicare's requirements for reasonable and necessary INPATIENT services [42 CFR 412.3e].: Yes Medical Necessity: Significant Comorbidiites Make Outpatient Treatment Too Risky, Need Close Monitoring Due to Risk of Patient Decompensation, Need For IV Fluids, Risk of Complication if Not Cared For in Hospital, Risk of Diagnosis Which Will Require Inpatient Eval/Care/Monitoring
--- NOTE | 2019-11-08 17:43 | ADVANCED CARE ---
- Diagnosis (1) Acute metabolic encephalopathy Diagnosis Current: Yes (2) Metabolic alkalosis Diagnosis Current: Yes (3) Hyponatremia Diagnosis Current: Yes (4) Hypokalemia Diagnosis Current: Yes (5) CAD (coronary artery disease) Diagnosis Current: Yes (6) COPD (chronic obstructive pulmonary disease) Diagnosis Current: Yes (7) Chronic respiratory failure with hypoxia, on home O2 therapy Diagnosis Current: Yes (8) HTN (hypertension) Diagnosis Current: Yes Attendance: Patient Resuscitation Status: Full Code Discussion: All aspects of code status discussed with patient/POA including cardioversion, chest compressions, and intubation and the patient/POA indicated they wish to be full code. MPOA is designated as: , Senthil Kent Time Spent: 17 minutes
[2019-11-08 17:48] LABS: ANION GAP 11 (5-19)
[2019-11-08 17:50] LABS: CARBON DIOXIDE 58 mmol/L (22-30); POTASSIUM 2.1 mmol/L (3.6-5.0)
[2019-11-08 17:51] LABS: CHLORIDE 50 mmol/L (98-107)
[2019-11-08] MEDS ORDERED: LIPASE/PROTEASE/AMYLASE 1 CAP CAPSULE.DR PO ONE (17:57)
[2019-11-08] MEDS: POTASSIUM CHLORIDE 20 MEQ PACKET PO SCH ×2 (18:03→21:44)
[2019-11-08] MEDS ORDERED: POTASSI CL 20 MEQ/50 ML RIDER 20 MEQ/50 ML RTUPB IV ONE (18:13)
[2019-11-08] MEDS: LIPASE/PROTEASE/AMYLASE 1 CAP CAPSULE.DR PO SCH (18:20)
[2019-11-08] MEDS: ACETAMINOPHEN 325 MG TABLET PO PRN (21:00)
[2019-11-08] MEDS: METOPROLOL TARTRATE 50 MG TABLET PO SCH (21:43)
[2019-11-09] MEDS ORDERED: POTASSI CL 20 MEQ/50 ML RIDER 0 MEQ/0 ML RTUPB IV ONE (00:18)
[2019-11-09] MEDS ORDERED: POTASSI CL 20 MEQ/50 ML RIDER 20 MEQ/50 ML RTUPB IV ONE ×2 (01:37→14:25)
[2019-11-09 03:06] LABS: ALKALINE PHOSPHATASE 104 U/L (38-126); ASPARTATE AMINO TRANSFERASE 34 U/L (14-36); BILIRUBIN,DIRECT 0.2 mg/dL (0.0-0.4); BILIRUBIN,TOTAL 0.7 mg/dL (0.2-1.3); BLOOD UREA NITROGEN 14 mg/dL (7-20); CALCIUM 8.9 mg/dL (8.4-10.2); CHLORIDE 58 mmol/L (98-107); GLUCOSE 137 mg/dL (75-110); TOTAL PROTEIN 7.4 g/dL (6.3-8.2)
[2019-11-09 03:19] LABS: ANION GAP 10 (5-19)
[2019-11-09 03:32] LABS: CARBON DIOXIDE 53 mmol/L (22-30)
[2019-11-09] MEDS ORDERED: POTASSIUM CHLORIDE 10 MEQ TABLET.ER PO ONE (04:00)
[2019-11-09] MEDS: ACETAMINOPHEN 325 MG TABLET PO PRN ×2 (04:29→20:05)
[2019-11-09] MEDS: POTASSIUM CHLORIDE 20 MEQ/50 ML RTU IV SCH ×3 (04:31→08:18)
[2019-11-09 04:33] LABS: ARTERIAL BLOOD BASE EXCESS 24.4 mmol/L; ARTERIAL BLOOD H2CO3 1.67 mmol/L (1.05-1.35); ARTERIAL BLOOD HCO3 50.3 mmol/L (20-24); ARTERIAL BLOOD O2 SATURATION 97.5 % (94-98); ARTERIAL BLOOD PCO2 55.4 mmHg (35-45); ARTERIAL BLOOD PH 7.58 (7.35-7.45); ARTERIAL BLOOD PO2 87.5 mmHg (80-100)
[2019-11-09 04:34] LABS: ARTERIAL BLOOD FIO2 3 L
[2019-11-09] MEDS: POTASSIUM CHLORIDE 20 MEQ PACKET PO SCH ×3 (06:09→22:36)
[2019-11-09] MEDS: LEVOTHYROXINE SODIUM 0.075 MG TABLET PO SCH (06:12)
[2019-11-09 06:25] LABS: ABSOLUTE LYMPHOCYTES (AUTO) 2.2 10^3/uL (0.5-4.7); ABSOLUTE NEUT (AUTO) 9.7 10^3/uL (1.7-8.2); BASOPHILS % (AUTO) 0.4 % (0-2); EOSINOPHILS % (AUTO) 0.1 % (0-6); HEMATOCRIT 43.4 % (36.0-47.0); HEMOGLOBIN 15.1 g/dL (12.0-15.5); LYMPHOCYTES % (AUTO) 16.9 % (13-45); MEAN CORPUSCULAR HGB CONC 34.7 g/dL (32.0-36.0); MEAN CORPUSCULAR VOLUME 89 fl (80-97); MONOCYTES % (AUTO) 7.8 % (3-13); PLATELET COUNT 323 10^3/uL (150-450); RED BLOOD COUNT 4.85 10^6/uL (3.72-5.28); RED CELL DISTRIBUTION WIDTH 14.6 % (11.5-14.0); SEGMENTED NEUTROPHILS % (AUTO) 74.8 % (42-78); TOTAL CELLS COUNTED % (AUTO) 100 %
[2019-11-09 07:43] LABS: PHOSPHORUS 2.5 mg/dL (2.5-4.5)
[2019-11-09] MEDS: LIPASE/PROTEASE/AMYLASE 1 CAP CAPSULE.DR PO SCH ×3 (11:41→18:11)
[2019-11-09] MEDS: FLUTICASONE/VILANTEROL 200-25 MCG/DOSE IH SCH (11:42)
[2019-11-09] MEDS: DOCUSATE SODIUM 100 MG CAPSULE PO SCH (11:42)
[2019-11-09] MEDS: ISOSORBIDE MONONITRATE 30 MG TAB.ER.24H PO SCH (11:42)
[2019-11-09] MEDS: METOPROLOL TARTRATE 50 MG TABLET PO SCH ×2 (11:43→22:36)
[2019-11-09] MEDS: ENOXAPARIN SODIUM INJ 40 MG/0.4 ML DISP.SYRIN SUBCUT SCH (11:43)
[2019-11-09] MEDS: CLOPIDOGREL BISULFATE 75 MG TABLET PO SCH (11:44)
[2019-11-09] MEDS ORDERED: (PENDING PHARMACY ID) (Albuterol Sulfate 2 PUFF) IH PRN (12:57)
[2019-11-09 13:16] LABS: BLOOD UREA NITROGEN 13 mg/dL (7-20); CALCIUM 8.6 mg/dL (8.4-10.2); CHLORIDE 66 mmol/L (98-107); GLUCOSE 138 mg/dL (75-110)
[2019-11-09 13:25] LABS: ANION GAP 9 (5-19)
[2019-11-09 13:29] LABS: CARBON DIOXIDE 47 mmol/L (22-30); POTASSIUM 2.6 mmol/L (3.6-5.0)
[2019-11-09] MEDS ORDERED: ONDANSETRON HCL INJ/PF 4 MG/2 ML SDV IV PRN (13:30)
[2019-11-09] MEDS ORDERED: ONDANSETRON 4 MG TAB.RAPDIS PO PRN (13:30)
--- NOTE | 2019-11-09 13:38 | PDOC PROGRESS REPORT ---
Subjective Progress Note for:: 11/09/19 Subjective:: NATTY KHAN is a 69 year old female with past medical history significant for diastolic CHF, HTN, HLD, chronic A. fib, CAD status post stents, COPD who was admitted 11/08/19 acute metabolic encephalopathy r/t hyponatremia. Patient was seen on morning rounds. She was rested in bed comfortably on supplemental oxygen. She is alert and orientated to self. She answers yes and no questions appropriately, but otherwise is confused. Currently talking about there being cats in her room. She does appear comfortable and is not noted to be in any acute distress. Reason For Visit: SEVERE HYPONATREMIA,SEVERE HYPOKALEMIA, Physical Exam Vital Signs: Temp Pulse Resp BP Pulse Ox 98.0 F 94 16 152/78 H 98 11/09/19 07:42 11/09/19 07:42 11/09/19 07:42 11/09/19 07:42 11/09/19 07:42 Intake & Output 11/08/19 11/09/19 11/10/19 06:59 06:59 06:59 Intake Total 1123 50 Balance 1123 50 Weight 92.2 kg General appearance: PRESENT: no acute distress, cooperative, obese, well- developed, well-nourished Head exam: PRESENT: atraumatic, normocephalic Eye exam: PRESENT: conjunctiva pink, EOMI, PERRLA. ABSENT: scleral icterus Ear exam: PRESENT: normal external ear exam Mouth exam: PRESENT: dry mucosa, tongue midline Respiratory exam: PRESENT: clear to auscultation shira, symmetrical, unlabored, other - Supplemental oxygen via nasal cannula. ABSENT: rales, rhonchi, wheezes Cardiovascular exam: PRESENT: RRR. ABSENT: diastolic murmur, rubs, systolic murmur Pulses: PRESENT: normal dorsalis pedis pul Vascular exam: PRESENT: normal capillary refill GI/Abdominal exam: PRESENT: normal bowel sounds, soft. ABSENT: distended, guarding, mass, organolmegaly, rebound, tenderness Rectal exam: PRESENT: deferred Gentrourinary exam: PRESENT: indwelling catheter Extremities exam: PRESENT: full ROM. ABSENT: calf tenderness, clubbing, pedal edema Neurological exam: PRESENT: alert, awake, oriented to person, CN II-XII grossly intact. ABSENT: motor sensory deficit Psychiatric exam: PRESENT: appropriate affect, normal mood. ABSENT: homicidal ideation, suicidal ideation Skin exam: PRESENT: dry, intact, warm. ABSENT: cyanosis, rash Results Laboratory Results: 11/09/19 06:04 11/08/19 11/08/19 11/08/19 13:55 13:55 17:10 WBC RBC Hgb Hct MCV MCH MCHC RDW Plt Count Seg Neutrophils % Carbonic Acid HCO3/H2CO3 Ratio ABG pH ABG pCO2 ABG pO2 ABG HCO3 ABG O2 Saturation ABG Base Excess FiO2 Sodium 116.6 L* Potassium 2.0 L* Chloride < 50 L Carbon Dioxide 58 H* Anion Gap 9 BUN 14 Creatinine 0.67 Est GFR ( Amer) > 60 Glucose 146 H Lactic Acid 0.8 0.8 Calcium 9.2 Phosphorus Magnesium 2.4 H Total Bilirubin 0.5 AST 32 Alkaline Phosphatase 98 Ammonia Total Protein 7.3 Albumin 4.1 TSH 11/08/19 11/08/19 11/09/19 17:10 17:10 02:15 WBC RBC Hgb Hct MCV MCH MCHC RDW Plt Count Seg Neutrophils % Carbonic Acid HCO3/H2CO3 Ratio ABG pH ABG pCO2 ABG pO2 ABG HCO3 ABG O2 Saturation ABG Base Excess FiO2 Sodium 118.6 L* 120.5 L* Potassium 2.1 L* 2.0 L* Chloride 50 L 58 L Carbon Dioxide 58 H* 53 H* Anion Gap 11 10 BUN 14 14 Creatinine 0.67 0.55 Est GFR ( Amer) > 60 > 60 Glucose 132 H 137 H Lactic Acid Calcium 9.0 8.9 Phosphorus Magnesium 2.5 H Total Bilirubin 0.7 AST 34 Alkaline Phosphatase 104 Ammonia 8.9 L Total Protein 7.[address] [facility] 11/09/19 11/09/19 11/09/19 04:18 06:04 06:04 WBC 13.0 H RBC 4.85 Hgb 15.1 Hct 43.4 MCV 89 MCH 31.0 MCHC 34.7 RDW 14.6 H Plt Count 323 Seg Neutrophils % 74.8 Carbonic Acid 1.67 H HCO3/H2CO3 Ratio 30:1 ABG pH 7.58 H ABG pCO2 55.4 H ABG pO2 87.5 ABG HCO3 50.3 H ABG O2 Saturation 97.5 ABG Base Excess 24.4 FiO2 3 L Sodium Potassium Chloride Carbon Dioxide Anion Gap BUN Creatinine Est GFR ( Amer) Glucose Lactic Acid Calcium Phosphorus Cancelled Magnesium Cancelled Total Bilirubin AST Alkaline Phosphatase Ammonia Total Protein Albumin TSH 11/09/19 11/09/19 06:04 07:15 WBC RBC Hgb Hct MCV MCH MCHC RDW Plt Count Seg Neutrophils % Carbonic Acid HCO3/H2CO3 Ratio ABG pH ABG pCO2 ABG pO2 ABG HCO3 ABG O2 Saturation ABG Base Excess FiO2 Sodium Potassium Chloride Carbon Dioxide Anion Gap BUN Creatinine Est GFR ( Amer) Glucose Lactic Acid Calcium Phosphorus 2.5 Magnesium 2.4 H Total Bilirubin AST Alkaline Phosphatase Ammonia Total Protein Albumin TSH 0.49 11/08/19 11/08/19 11/08/19 11:58 11:58 12:39 Troponin I Cancelled Cancelled NT-Pro-B Natriuret Pep Cancelled Cancelled 11/08/19 13:55 Troponin I 0.014 NT-Pro-B Natriuret Pep 606 H Impressions: Chest X-Ray 11/08/19 12:07 IMPRESSION: NO ACUTE RADIOGRAPHIC FINDING IN THE CHEST. Abdomen/Pelvis CT 11/08/19 14:01 IMPRESSION: Diverticulosis without evidence of diverticulitis. Assessment and Plan - Diagnosis (1) Acute metabolic encephalopathy Is this a current diagnosis for this admission?: Yes Plan: Improved; A&O to self; conversational and socially appropriate though w/ visual hallucinations and pulling at IV lines requiring mitts. Likely due to severe electrolyte abnormalities, possibly elevated ammonia in the setting of metabolic alkalosis due to diuretic IMCU admission Slow infusion of normal saline with frequent BMP checks Every 2 hours neuro checks If no improvement, CT head; no history of falls per ED and family and patient CT abdomen/pelvis unremarkable for acute findings (2) Metabolic alkalosis Is this a current diagnosis for this admission?: Yes Plan: Gradually improving. Due to diuretic and solute loss IV fluids Trend BMP (3) Hypokalemia Is this a current diagnosis for this admission?: Yes Plan: Down to 2.0 on admission due to diuretic Additional IV and p.o. replacement today Serial BMP (4) Hyponatremia Is this a current diagnosis for this admission?: Yes Plan: Improved. Severe, at [id number]. Trending up; 116.6-> 118.6-> 120.5 Serial BMP every 6 hours Normal saline infusion at 75 cc/h No diuretics Consider Nephrology consult (5) CAD (coronary artery disease) Is this a current diagnosis for this admission?: Yes Plan: Resume Plavix, statin, Isosorbide and metoprolol. Chest pain free at present. Monitor on telemetry. (6) COPD (chronic obstructive pulmonary disease) Qualifiers: COPD type: emphysema Emphysema type: centrilobular Qualified Code(s): J43.2 - Centrilobular emphysema Is this a current diagnosis for this admission?: Yes Plan: No exacerbation Resume home regimen of Incruse and Breo. Albuterol HFA and/or nebs as needed. (7) Chronic respiratory failure with hypoxia, on home O2 therapy Is this a current diagnosis for this admission?: Yes Plan: Uses 3 L nasal cannula at baseline (8) HTN (hypertension) Is this a current diagnosis for this admission?: Yes Plan: Resume home dose Metoprolol, Isosorbide Hold diuretics Regular diet r/t hyponatremia - Time Time Spent with patient: 25-34 minutes Medications reviewed and adjusted accordingly: Yes Anticipated discharge: Home
[2019-11-09] MEDS ORDERED: NORMAL SALINE 1000 ML 1,000 ML IV PRN (14:08)
[2019-11-09] MEDS: POTASSI CL 20 MEQ/50 ML RIDER 20 MEQ/50 ML RTUPB IV SCH ×2 (14:41→16:33)
[2019-11-09] MEDS ORDERED: POTASSIUM CHLORIDE 20 MEQ PACKET PO ONE (15:00)
[2019-11-09] MEDS ORDERED: HYDRALAZINE HCL INJ/PF 20 MG/1 ML SDV IV PRN (15:11)
[2019-11-09 18:45] LABS: BLOOD UREA NITROGEN 11 mg/dL (7-20); CALCIUM 8.3 mg/dL (8.4-10.2); CHLORIDE 70 mmol/L (98-107); GLUCOSE 118 mg/dL (75-110)
[2019-11-09 18:56] LABS: ANION GAP 10 (5-19)
[2019-11-09 18:57] LABS: CARBON DIOXIDE 46 mmol/L (22-30); POTASSIUM 2.8 mmol/L (3.6-5.0)
[2019-11-09] MEDS ORDERED: (PENDING PHARMACY ID) (Fluticasone/Salmeterol 1 INH) IH SCH (22:00)
[2019-11-09] MEDS ORDERED: ATORVASTATIN CALCIUM 40 MG TABLET PO SCH (22:00)
[2019-11-09] MEDS: LISINOPRIL 10 MG TABLET PO SCH (22:38)
[2019-11-10] MEDS: ACETAMINOPHEN 325 MG TABLET PO PRN ×2 (01:00→05:00)
[2019-11-10 02:14] LABS: BLOOD UREA NITROGEN 12 mg/dL (7-20); CALCIUM 8.4 mg/dL (8.4-10.2); CHLORIDE 76 mmol/L (98-107); GLUCOSE 112 mg/dL (75-110)
[2019-11-10 02:27] LABS: ANION GAP 9 (5-19)
[2019-11-10 02:28] LABS: CARBON DIOXIDE 43 mmol/L (22-30)
[2019-11-10] MEDS ORDERED: POTASSI CL 20 MEQ/50 ML RIDER 20 MEQ/50 ML RTUPB IV ONE (02:55)
[2019-11-10] MEDS: POTASSIUM CHLORIDE 20 MEQ/50 ML RTU IV SCH ×3 (03:00→06:33)
[2019-11-10] MEDS ORDERED: POTASSIUM CHLORIDE 10 MEQ TABLET.ER PO ONE (04:00)
[2019-11-10] MEDS ORDERED: PANTOPRAZOLE SODIUM 40 MG TABLET.DR PO SCH (06:00)
[2019-11-10] MEDS: POTASSIUM CHLORIDE 20 MEQ PACKET PO SCH ×2 (06:28→13:16)
[2019-11-10] MEDS: LEVOTHYROXINE SODIUM 0.075 MG TABLET PO SCH (06:28)
[2019-11-10 07:16] LABS: HEMATOCRIT 41.3 % (36.0-47.0); MEAN CORPUSCULAR HEMOGLOBIN 30.2 pg (27.0-33.4); MEAN CORPUSCULAR HGB CONC 33.8 g/dL (32.0-36.0); MEAN CORPUSCULAR VOLUME 89 fl (80-97); PLATELET COUNT 369 10^3/uL (150-450); RED BLOOD COUNT 4.63 10^6/uL (3.72-5.28); RED CELL DISTRIBUTION WIDTH 14.8 % (11.5-14.0); WHITE BLOOD COUNT 13.3 10^3/uL (4.0-10.5)
[2019-11-10 07:17] LABS: BLOOD UREA NITROGEN 11 mg/dL (7-20); CALCIUM 8.5 mg/dL (8.4-10.2); CHLORIDE 82 mmol/L (98-107); GLUCOSE 117 mg/dL (75-110); POTASSIUM 3.2 mmol/L (3.6-5.0)
[2019-11-10 07:20] LABS: ABSOLUTE LYMPHOCYTES# (MANUAL) 2.5 10^3/uL (0.5-4.7); ABSOLUTE MONOCYTES # (MANUAL) 1.1 10^3/uL (0.1-1.4); BASOPHILS % (MANUAL) 0 % (0-2); EOSINOPHILS % (MANUAL) 0 % (0-6); LYMPHOCYTES % (MANUAL) 19 % (13-45); MONOCYTES % (MANUAL) 8 % (3-13); SEGMENTED NEUTROPHILS % (MAN) 73 % (42-78); TOTAL CELLS COUNTED 100
[2019-11-10 07:22] LABS: ANISOCYTOSIS SLIGHT; OVALOCYTES SLIGHT; PLATELET COMMENT ADEQUATE; POIKILOCYTOSIS SLIGHT; TOXIC GRANULATION 1+
[2019-11-10 07:24] LABS: ANION GAP 8 (5-19)
[2019-11-10 07:25] LABS: CARBON DIOXIDE 42 mmol/L (22-30)
[2019-11-10] MEDS: CLOPIDOGREL BISULFATE 75 MG TABLET PO SCH (09:13)
[2019-11-10] MEDS: DOCUSATE SODIUM 100 MG CAPSULE PO SCH (09:13)
[2019-11-10] MEDS: LISINOPRIL 10 MG TABLET PO SCH (09:13)
[2019-11-10] MEDS: METOPROLOL TARTRATE 50 MG TABLET PO SCH (09:13)
[2019-11-10] MEDS: ISOSORBIDE MONONITRATE 30 MG TAB.ER.24H PO SCH (09:13)
[2019-11-10] MEDS: ENOXAPARIN SODIUM INJ 40 MG/0.4 ML DISP.SYRIN SUBCUT SCH (09:14)
[2019-11-10] MEDS: FLUTICASONE/VILANTEROL 200-25 MCG/DOSE IH SCH (09:16)
[2019-11-10] MEDS: LIPASE/PROTEASE/AMYLASE 1 CAP CAPSULE.DR PO SCH ×2 (09:16→12:58)
[2019-11-10] MEDS ORDERED: UMECLIDINIUM BROMIDE 62.5 MCG/DOSE IH SCH (10:00)
[2019-11-10] MEDS ORDERED: (PENDING PHARMACY ID) (Rosuvastatin Calcium [Crestor] 20 MG) PO SCH (10:00)
[2019-11-10] MEDS ORDERED: (PENDING PHARMACY ID) (Tiotropium Bromide [Spiriva Handihaler 5 Cap/Kit (18 Mcg/Cap)] 1 CA IH SCH (10:00)
[2019-11-10 12:37] LABS: BLOOD UREA NITROGEN 12 mg/dL (7-20); CALCIUM 8.6 mg/dL (8.4-10.2); CHLORIDE 89 mmol/L (98-107); GLUCOSE 119 mg/dL (75-110); POTASSIUM 3.6 mmol/L (3.6-5.0)
[2019-11-10 12:43] LABS: ANION GAP 6 (5-19); CARBON DIOXIDE 36 mmol/L (22-30)
[2019-11-10] MEDS ORDERED: OXYCODONE HCL IR 5 MG TABLET PO SCH ×2 (13:00→14:00)
[2019-11-10 13:33] VITALS: BP 131/71
[2019-11-10 14:46] LABS: C DIFFICILE GDH NEGATIVE (NEGATIVE)
--- NOTE | 2019-11-10 15:44 | PDOC DISCHARGE SUMMARY ---
Impression - Admit/DC Date/PCP Admission Date/Primary Care Provider: 11/08/19 16:03 ELEANOR LOCKWOOD MD Discharge Date: 11/10/19 - Discharge Diagnosis (1) Metabolic alkalosis Is this a current diagnosis for this admission?: Yes (2) Acute metabolic encephalopathy Is this a current diagnosis for this admission?: Yes (3) Hypokalemia Is this a current diagnosis for this admission?: Yes (4) Hyponatremia Is this a current diagnosis for this admission?: Yes (5) CAD (coronary artery disease) Is this a current diagnosis for this admission?: Yes (6) COPD (chronic obstructive pulmonary disease) Is this a current diagnosis for this admission?: Yes (7) Chronic respiratory failure with hypoxia, on home O2 therapy Is this a current diagnosis for this admission?: Yes (8) HTN (hypertension) Is this a current diagnosis for this admission?: Yes - Additional Information Resuscitation Status: Full Code Discharge Diet: Cardiac Discharge Activity: Activity As Tolerated Referrals: ELEANOR LOCKWOOD MD [Primary Care Provider] - Follow up as needed Prescriptions: Furosemide [Lasix 20 mg Tablet] 20 mg PO QAM #30 tablet Potassium Chloride [Potassium Chloride 20 Meq Packet] 40 meq PO DAILY #30 packet Lisinopril [Prinivil 5 mg Tablet] 5 mg PO DAILY #30 tablet Home Medications: Butalb/Acetaminophen/Caffeine [Fioricet (50-325-40 mg) Tablet] 1 tab PO DAILY PRN 10/15/19 Ergocalciferol (Vitamin D2) [Vitamin D2] 1 cap PO DIAZ@1000 10/15/19 Estrogens,Conjugated [Premarin 0.3 mg Tablet] 0.3 mg PO ASDIR PRN 10/15/19 Isosorbide Mononitrate [Imdur 30 mg Tablet.er] 30 mg PO DAILY 10/15/19 Levothyroxine Sodium 75 mcg PO Q6AM 10/15/19 Loratadine [Claritin] 10 mg PO DAILY 10/15/19 Metoprolol Tartrate [Lopressor 50 mg Tablet] 50 mg PO Q12 10/15/19 Nitroglycerin [Nitrostat 0.4 mg (1/150 Gr) Tabs 25/Bottle] 1 tab SL Q5MP PRN 10/15/19 Pantoprazole Sodium 40 mg PO DAILY 10/15/19 Quetiapine Fumarate [Quetiapine Fumarate ER] 800 mg PO QHS 10/15/19 Ranolazine [Ranexa] 1,000 mg PO BID 10/15/19 Rosuvastatin Calcium [Crestor] 20 mg PO DAILY 10/15/19 Albuterol Sulfate [Proair HFA Inhalation Aerosol 8.5 gm MDI] 2 puff IH Q4HP PRN 10/16/19 Fluticasone/Salmeterol [Advair 250-50 Diskus 14 Dose/Diskus] 1 inh IH Q12 10/16/19 Polyethylene Glycol 3350 17 gm PO DAILYP PRN 10/16/19 Clopidogrel Bisulfate [Plavix 75 mg Tablet] 75 mg NG DAILY tablet 10/19/19 Cephalexin [Cephalexin 250 MG Tablet] 1 tab PO QID 11/09/19 Metolazone [Zaroxolyn 5 mg Tablet] 5 mg PO DAILY 11/09/19 Nystatin [Mycostatin 911306 Unit/1 ml Susp 60 ml Btl] 4 ml PO QID 11/09/19 Oxybutynin Chloride [Ditropan 5 mg Tablet] 5 mg PO DAILY 11/09/19 Oxycodone HCl [Oxy-Ir 5 mg Tablet] 15 mg PO TID 11/09/19 Oxycodone HCl [Oxycontin] 30 mg PO BID 11/09/19 Promethazine HCl [Phenergan 25 mg Tablet] 25 mg PO DAILY 11/09/19 Tiotropium [place] [Spiriva Handihaler 5 Cap/Kit (18 Mcg/Cap)] 1 cap IH DAILY 11/09/19 Furosemide [Lasix 20 mg Tablet] 20 mg PO QAM #30 tablet 11/10/19 Lisinopril [Prinivil 5 mg Tablet] 5 mg PO DAILY #30 tablet 11/10/19 Potassium Chloride [Potassium Chloride 20 Meq Packet] 40 meq PO DAILY #30 packet 11/10/19 History of Present Illiness History of Present Illness: NATTY KHAN is a 69 year old female with past medical history significant for diastolic CHF, HTN, HLD, chronic A. fib, CAD status post stents, COPD who presents with 1 day history of progressive confusion noted by her family. This is occurred in the past and patient was admitted recently after being found down in rhabdomyolysis with CELESTINO, notably dehydrated due to Lasix. Today, her potassium is severely decreased down to 2.0 and her sodium is significantly decreased down to 116.6, also severe hypochloremia. Magnesium is mildly elevated. BNP is only 606, unlikely CHF exacerbation. Ammonia has been ordered. CT abdomen/pelvis did not show any acute abnormalities. Patient admitted for gradual correction of her multiple electrolyte abnormalities. Hospital Course Hospital Course: (1) Acute metabolic encephalopathy Resolved (2) Metabolic alkalosis Improved. Most likely due to overdiuresis. Bicarb improved from 58-36. (3) Hypokalemia Improved from 2.0-3.6 with replacement. (4) Hyponatremia Improved from 1 16-1 31 with fluids. (5) CAD (coronary artery disease) Resume Plavix, statin, Isosorbide and metoprolol. Chest pain free at present. (6) COPD (chronic obstructive pulmonary disease) No exacerbation Resume home regimen of Incruse and Breo. Albuterol HFA and/or nebs as needed. (7) Chronic respiratory failure with hypoxia, on home O2 therapy Uses 3 L nasal cannula at baseline (8) HTN (hypertension) Resume home dose Metoprolol, Isosorbide Decrease Lasix to 20 mg daily and start lisinopril at 5 mg daily Regular diet r/t hyponatremia Patient is noncompliant with her medications and I think she was taking more Lasix than she should have. She needs more medication and she needs to follow- up with her primary care physician. Currently stable and asking to go home. Physical Exam Vital Signs: Temp Pulse Resp BP Pulse Ox 98.2 F 88 16 131/71 H 97 11/10/19 11:55 11/10/19 12:20 11/10/19 12:20 11/10/19 11:55 11/10/19 12:20 Intake & Output 11/09/19 11/10/19 11/11/19 06:59 06:59 06:59 Intake Total 1123 533 Balance 1123 533 Weight 203 lb 4.259 oz 205 lb 14.588 oz General appearance: PRESENT: no acute distress, cooperative Head exam: PRESENT: atraumatic, normocephalic Eye exam: PRESENT: EOMI, PERRLA Mouth exam: PRESENT: neck supple Neck exam: ABSENT: meningismus, tenderness, tracheostomy Respiratory exam: PRESENT: clear to auscultation shira Cardiovascular exam: PRESENT: RRR GI/Abdominal exam: PRESENT: normal bowel sounds Rectal exam: PRESENT: deferred Neurological exam: PRESENT: alert, awake, oriented to person, oriented to place, oriented to time, oriented to situation Results Laboratory Results: WBC 13.3 10^3/uL (4.0-10.5) H 11/10/19 06:43 RBC 4.63 10^6/uL (3.72-5.28) 11/10/19 06:43 Hgb 14.0 g/dL (12.0-15.5) 11/10/19 06:43 Hct 41.3 % (36.0-47.0) 11/10/19 06:43 MCV 89 fl (80-97) 11/10/19 06:43 MCH 30.2 pg (27.0-33.4) 11/10/19 06:43 MCHC 33.8 g/dL (32.0-36.0) 11/10/19 06:43 RDW 14.8 % (11.5-14.0) H 11/10/19 06:43 Plt Count 369 10^3/uL (150-450) 11/10/19 06:43 Lymph % (Auto) Not Reportable 11/10/19 06:43 [place] % (Auto) Not Reportable 11/10/19 06:43 Eos % (Auto) Not Reportable 11/10/19 06:43 Baso % (Auto) Not Reportable 11/10/19 06:43 Absolute Neuts (auto) Not Reportable 11/10/19 06:43 Absolute Lymphs (auto) Not Reportable 11/10/19 06:43 Absolute Monos (auto) Not Reportable 11/10/19 06:43 Absolute Eos (auto) Not Reportable 11/10/19 06:43 Absolute Basos (auto) Not Reportable 11/10/19 06:43 Total Counted 100 11/10/19 06:43 Seg Neutrophils % Not Reportable 11/10/19 06:43 Seg Neuts % (Manual) 73 % (42-78) 11/10/19 06:43 Lymphocytes % (Manual) 19 % (13-45) 11/10/19 06:43 Monocytes % (Manual) 8 % (3-13) 11/10/19 06:43 Eosinophils % (Manual) 0 % (0-6) 11/10/19 06:43 Basophils % (Manual) 0 % (0-2) 11/10/19 06:43 Abs Neuts (Manual) 9.7 10^3/uL (1.7-8.2) H 11/10/19 06:43 Abs Lymphs (Manual) 2.5 10^3/uL (0.5-4.7) 11/10/19 06:43 Abs Monocytes (Manual) 1.1 10^3/uL (0.1-1.4) 11/10/19 06:43 Absolute Eos (Manual) 0.0 10^3/uL (0.0-0.6) 11/10/19 06:43 Abs Basophils (Manual) 0.0 10^3/uL (0.0-0.2) 11/10/19 06:43 Toxic Granulation 1+ 11/10/19 06:43 Platelet Comment ADEQUATE 11/10/19 06:43 Poikilocytosis SLIGHT 11/10/19 06:43 Anisocytosis SLIGHT 11/10/19 06:43 Ovalocytes SLIGHT 11/10/19 06:43 PT 12.9 SEC (11.4-15.4) 11/08/19 11:58 INR 0.97 11/08/19 11:58 Carbonic Acid 1.67 mmol/L (1.05-1.35) H 11/09/19 04:18 HCO3/H2CO3 Ratio 30:1 11/09/19 04:18 ABG pH 7.58 (7.35-7.45) H 11/09/19 04:18 ABG pCO2 55.4 mmHg (35-45) H 11/09/19 04:18 ABG pO2 87.5 mmHg (80-100) 11/09/19 04:18 ABG HCO3 50.3 mmol/L (20-24) H 11/09/19 04:18 ABG Total CO2 52.0 mmol/L (21-25) H 11/09/19 04:18 ABG O2 Saturation 97.5 % (94-98) 11/09/19 04:18 ABG Base Excess 24.4 mmol/L 11/09/19 04:18 VBG pH 7.57 (7.30-7.42) H 11/08/19 12:39 VBG pCO2 61.4 mmHg (35-63) 11/08/19 12:39 VBG HCO3 54.6 mmol/L (20-32) H 11/08/19 12:39 VBG Base Excess 27.4 mmol/L 11/08/19 12:39 FiO2 3 L 11/09/19 04:18 Sodium 131.0 mmol/L (137-145) L 11/10/19 12:05 Potassium 3.6 mmol/L (3.6-5.0) 11/10/19 12:05 Chloride 89 mmol/L (98-107) L 11/10/19 12:05 Carbon Dioxide 36 mmol/L (22-30) H 11/10/19 12:05 Anion Gap 6 (5-19) 11/10/19 12:05 BUN 12 mg/dL (7-20) 11/10/19 12:05 Creatinine 0.51 mg/dL (0.52-1.25) L 11/10/19 12:05 Est GFR ( Amer) > 60 (>60) 11/10/19 12:05 Est GFR (Non-Af Amer) Cancelled 11/08/19 12:39 Est GFR (MDRD) Non-Af > 60 (>60) 11/10/19 12:05 Glucose 119 mg/dL (75-110) H 11/10/19 12:05 POC Glucose 120 mg/dL (70-110) H 11/09/19 16:18 Lactic Acid 0.8 mmol/L (0.7-2.1) 11/08/19 17:10 Calcium 8.6 mg/dL (8.4-10.2) 11/10/19 12:05 Phosphorus 2.5 mg/dL (2.5-4.5) 11/09/19 07:15 Magnesium 2.9 mg/dL (1.6-2.3) H 11/10/19 06:43 Total Bilirubin 0.7 mg/dL (0.2-1.3) 11/09/19 02:15 Direct Bilirubin 0.2 mg/dL (0.0-0.4) 11/09/19 02:15 Neonat Total Bilirubin Not Reportable 11/09/19 02:15 Neonat Direct Bilirubin Not Reportable 11/09/19 02:15 Neonat Indirect Bili Not Reportable 11/09/19 02:15 AST 34 U/L (14-36) 11/09/19 02:15 ALT 27 U/L (<35) 11/09/19 02:15 Alkaline Phosphatase 104 U/L (38-126) 11/09/19 02:15 Ammonia 8.9 umol/L (9-33) L 11/08/19 17:10 Troponin I 0.014 ng/mL 11/08/19 13:55 NT-Pro-B Natriuret Pep 606 pg/mL (<125) H 11/08/19 13:55 Total Protein 7.4 g/dL (6.3-8.2) 11/09/19 02:15 Albumin 4.0 g/dL (3.5-5.0) 11/09/19 02:15 EGFR Cancelled 11/08/19 12:39 TSH 0.49 uIU/mL (0.47-4.68) 11/09/19 06:04 Urine Color YELLOW 11/08/19 12:45 Urine Appearance SLIGHTLY-CLOUDY 11/08/19 12:45 Urine pH 7.0 (5.0-9.0) 11/08/19 12:45 Ur Specific [place] 1.009 11/08/19 12:45 Urine Protein 30 mg/dL (NEGATIVE) H 11/08/19 12:45 Urine Glucose (UA) NEGATIVE mg/dL (NEGATIVE) 11/08/19 12:45 Urine Ketones TRACE mg/dL (NEGATIVE) H 11/08/19 12:45 Urine Blood SMALL (NEGATIVE) H 11/08/19 12:45 Urine Nitrite (Reflex) NEGATIVE (NEGATIVE) 11/08/19 12:45 Urine Bilirubin NEGATIVE (NEGATIVE) 11/08/19 12:45 Urine Urobilinogen NEGATIVE mg/dL (<2.0) 11/08/19 12:45 Leukocyte Esterase Rfl NEGATIVE (NEGATIVE) 11/08/19 12:45 Urine RBC (Auto) 12 /HPF 11/08/19 12:45 Urine WBC (Reflex) 9 /HPF 11/08/19 12:45 Squamous Epi Cells Auto 1 /HPF 11/08/19 12:45 Amorphous Sediment Auto TRACE /HPF 11/08/19 12:45 Urine Mucus (Auto) RARE /LPF 11/08/19 12:45 Urine Ascorbic Acid NEGATIVE (NEGATIVE) 11/08/19 12:45 Stl C. Difficile GDH Ag NEGATIVE (NEGATIVE) 11/10/19 10:28 Stl C.difficile Tox A&B NEGATIVE (NEGATIVE) 11/10/19 10:28 11/08/19 11/08/19 11/08/19 11:58 11:58 12:39 Troponin I Cancelled Cancelled NT-Pro-B Natriuret Pep Cancelled Cancelled 11/08/19 13:55 Troponin I 0.014 NT-Pro-B Natriuret Pep 606 H Impressions: Chest X-Ray 11/08/19 12:07 IMPRESSION: NO ACUTE RADIOGRAPHIC FINDING IN THE CHEST. Abdomen/Pelvis CT 11/08/19 14:01 IMPRESSION: Diverticulosis without evidence of diverticulitis. Plan Time Spent: Less than 30 Minutes - 25 min Stroke Is this a Stroke Patient?: No Acute Heart Failure - Is this a Heart Failure Patient?: No
[2019-11-10] MEDS ORDERED: (PENDING PHARMACY ID) (Oxycodone Hcl [Oxycontin] 30 MG) PO SCH (18:00)
[2019-11-10] MEDS ORDERED: OXYCODONE HCL SR 10 MG TABLET PO SCH (22:00)
== END 2019-11-10 18:12 | disposition home or self-care (01) | DRG 640 ==
LOC: ER 11:41 → EH 16:03 → 3S 19:11
PROVIDERS: ADMIT Internal Medicine; ATTEND Family Medicine
DX: E87.1 Hypo-osmolality and hyponatremia (principal); G93.41 Metabolic encephalopathy; J96.11 Chronic respiratory failure with hypoxia; I48.20 Chronic atrial fibrillation, unspecified; I50.32 Chronic diastolic (congestive) heart failure; E87.6 Hypokalemia; E87.3 Alkalosis; I25.10 Atherosclerotic heart disease of native coronary artery without angina pectoris; I11.0 Hypertensive heart disease with heart failure; E78.5 Hyperlipidemia, unspecified; E11.9 Type 2 diabetes mellitus without complications; E66.9 Obesity, unspecified; J43.2 Centrilobular emphysema; T50.2X5A Adverse effect of carbonic-anhydrase inhibitors, benzothiadiazides and other diuretics, initial encounter; Z78.1 Physical restraint status; E78.00 Pure hypercholesterolemia, unspecified; Z99.81 Dependence on supplemental oxygen; Z79.899 Other long term (current) drug therapy; Z79.02 Long term (current) use of antithrombotics/antiplatelets; Z95.5 Presence of coronary angioplasty implant and graft; Z91.14 Patient's other noncompliance with medication regimen; Z87.891 Personal history of nicotine dependence; Z79.890 Hormone replacement therapy; Z88.0 Allergy status to penicillin; Z88.2 Allergy status to sulfonamides; Z88.6 Allergy status to analgesic agent; Z91.041 Radiographic dye allergy status
CPT/HCPCS: 36415; 36600; 71046; 74176; 80048; 80053; 81001; 82140; 82803; 82962; 83605; 83735; 83880; 84100; 84443; 84484; 85025; 85610; 87040; 87086; 87324; 87449; 93005; 93010; 96365; 99285; J1650; J2405; J3480; J3490; J7030

== ENCOUNTER → 2019-11-16 | Outpatient (CLI) | payer MEDICARE, OTHER ==
--- NOTE | 2019-11-16 15:27 | RADIOLOGY REPORT (SQ) ---
EXAM DESCRIPTION: CT CHEST WITHOUT IMAGES COMPLETED DATE/TIME: 11/16/2019 3:01 pm REASON FOR STUDY: J43.9 EMPHYSEMA, UNSPECIFIED J43.9 EMPHYSEMA, UNSPECIFIED COMPARISON: 05/06/2018 TECHNIQUE: CT scan performed of the chest without intravenous contrast. Images reviewed with lung, soft tissue and bone windows. Reconstructed coronal and sagittal MPR images reviewed. All images st ored on PACS. All CT scanners at this facility use dose modulation, iterative reconstruction, and/or weight based d osing when appropriate to reduce radiation dose to as low as reasonably achievable (ALARA). [facility]: Dose Right [facility]: CareDose [facility]: Dose Right [facility]: Teradose 4D [facility]: [employer] RADIATION DOSE: CT Rad equipment meets quality standard of care and radiation dose reduction techniq ues were employed. CTDIvol: 15.0 - 16.7 mGy. DLP: 704 mGy-cm. mGy. LIMITATIONS: No technical limitations. FINDINGS: LUNGS AND PLEURA: Since prior examination the patient has increased pleural thickening shira aterally. Interstitial changes are more prominent scarring along the fissures remain. There is incr easing pleural thickening in both lung bases left greater than right. Centrilobular emphysematous ch anges are again noted. HILAR AND MEDIASTINAL STRUCTURES: Stable prominent mediastinal nodes the largest measures 1.7 cm. HEART AND VASCULAR STRUCTURES: No aneurysm. No pericardial effusion. UPPER ABDOMEN: There is pneumobilia. This is stable in appearance. THYROID AND OTHER SOFT TISSUES: No masses. No adenopathy. BONES: No significant finding. HARDWARE: None in the chest. OTHER: No other significant findings. IMPRESSION: Increasing bilateral interstitial airspace disease and pleural thickening. No focal mas ses. No focal consolidation. No discrete pulmonary nodules. TECHNICAL DOCUMENTATION: JOB ID: [id number] Quality ID # [id number]: Final reports with documentation of one or more dose reduction techniques (e.g., Au tomated exposure control, adjustment of the mA and/or kV according to patient size, use of iterative reconstruction technique) 2010 [employer]- All Rights Reserved Reading location - IP/workstation name: [email or web address]
== END ==
LOC: RAD 14:08
PROVIDERS: ATTEND Internal Medicine Critical Care Medicine
DX: J43.9 Emphysema, unspecified (principal); J84.9 Interstitial pulmonary disease, unspecified; R91.8 Other nonspecific abnormal finding of lung field; J45.909 Unspecified asthma, uncomplicated; R09.02 Hypoxemia; R06.09 Other forms of dyspnea; J98.6 Disorders of diaphragm; G47.30 Sleep apnea, unspecified
CPT/HCPCS: 71250

== ENCOUNTER 2020-06-19 07:45 | Emergency (ER) | payer MEDICARE, OTHER ==
--- NOTE | 2020-06-19 09:18 | ER Document Report ---
ED General - General Chief Complaint: Headache Stated Complaint: HEADACHE Time Seen by Provider: 06/19/20 08:56 Primary Care Provider: JESSICA ORANTES MD [Primary Care Provider] - Follow up tomorrow TRAVEL OUTSIDE OF THE [place] IN LAST 30 DAYS: No - HPI Notes: 69-year-old female with past medical history for COPD on 2 L of oxygen continuously, chronic pain on morphine 30 mg IR to the emergency department with her with complaints of headache, body aches in both knees and in her back, subjective fevers and chills that all began this morning. Her , Senthil, states that he gave her morphine 30 mg tablet this morning. Patient states that it has not helped her. She admits to some slight nausea as well. She denies any diarrhea. She does not think that she has had any possible exposures to COVID-19. She denies cough or shortness of breath. She states she has a history of migraines. However, this headache does not feel like her prior migraines. In the back of her head. She denies any vision changes. She denies any difficulty speaking. She denies any unilateral extremity weakness. - Related Data Allergies/Adverse Reactions: codeine Allergy (Severe, Verified 06/19/20 07:52) Hives Iodinated Contrast Media [IV Dye, Iodine Containing] Allergy (Severe, Verified 06/19/20 07:52) Anaphylaxis nitrofurantoin Allergy (Verified 06/21/20 16:31) Penicillins Allergy (Verified 06/19/20 07:52) Sulfa (Sulfonamide Antibiotics) Allergy (Verified 06/19/20 07:52) Home Medications: migraine. promethazine. morphine. pantoprazole. spiriva. proair Past Medical History - General Information source: Patient, Relative - Has been he would - Social History Smoking Status: Former Smoker Chew tobacco use (# tins/day): No Frequency of alcohol use: None Drug Abuse: None Family History: Reviewed & Not Pertinent Patient has homicidal ideation: No - Past Medical History Cardiac Medical History: Reports: Hx Congestive Heart Failure, Hx Hypercholesterolemia, Hx Hypertension Pulmonary Medical History: Reports: Hx COPD Endocrine Medical History: Reports: Hx Diabetes Mellitus Type 2 Psychiatric Medical History: Denies: Hx Depression Past Surgical History: Reports: Hx Appendectomy, Hx Cardiac Surgery - stent placed, Hx Cholecystectomy Review of Systems - Review of Systems Constitutional: See HPI, Chills, Fever EENT: denies: Throat pain Cardiovascular: denies: Chest pain, Palpitations, Dyspnea, Syncope, Dizziness, Lightheaded Respiratory: denies: Cough, Short of breath Gastrointestinal: Nausea. denies: Abdominal pain, Diarrhea, Vomiting Musculoskeletal: See HPI - Body aches. States she hurts all over but particula rly in her knees and back, Back pain, Joint pain, Muscle pain Skin: No symptoms reported Hematologic/Lymphatic: No symptoms reported -: Yes All other systems reviewed and negative Physical Exam - Vital signs Vitals: Temp 97.4 F 06/19/20 07:52 Selected Entries 06/19/20 06/19/20 07:52 11:00 Temperature 97.4 F Heart Rate ( 100 Monitors) Respiratory 15 Rate Blood Pressure 174/97 H O2 Sat by Pulse 99 Oximetry Interpretation: Normal - Notes Notes: PHYSICAL EXAMINATION: GENERAL: Chronically ill-appearing elderly female. She is on 2 L of oxygen on nasal cannula with good O2 sats HEAD: Atraumatic, normocephalic. EYES: Pupils equal round and reactive to light, extraocular movements intact, sclera anicteric, conjunctiva are normal. ENT: nares patent, oropharynx clear without exudates. Moist mucous membranes. NECK: Normal range of motion, supple without lymphadenopathy. no nuchal rigidity LUNGS: Breath sounds clear to auscultation bilaterally and equal. No wheezes rales or rhonchi. HEART: Regular rate and rhythm without murmurs, no leg edema ABDOMEN: Soft, nontender, normoactive bowel sounds. No guarding, no rebound. No masses appreciated. no CVAT EXTREMITIES: Normal range of motion, no pitting or edema. No cyanosis. + TTP over bilateral knee joints and to the back musculature with no step off or deformity to the midline spine. NEUROLOGICAL: No focal neurological deficits. Moves all extremities spontaneously and on command. Alert and oriented times 4. no pronator drift, normal finger to nose, no leg drift. PSYCH: Normal mood, normal affect. SKIN: Warm, Dry, normal turgor, no rashes or lesions noted. Course - Re-evaluation Re-evalutation: Patient states that she is feeling better and she would like to go home. She wants to do this before the renal ultrasound comes back. She states that I can call her with the results. We will go ahead and culture her urine and placed her on a short course of antibiotics to cover for possibly a hemorrhagic cystitis. Patient otherwise has very reassuring labs. Pending Covid testing. We will discharge home. Have encouraged her to return immediately for any worsening symptoms. She agrees with the plan - Vital Signs Vital signs: Temp Pulse Resp BP Pulse Ox 98.1 F 18 197/99 H 99 06/19/20 14:00 06/19/20 14:01 06/19/20 14:00 06/19/20 14:01 - Laboratory Results Result Diagrams: 06/19/20 08:57 06/19/20 08:57 Laboratory Results Interpreted: 06/19/20 06/19/20 06/19/20 08:57 08:57 10:14 RDW 16.2 H Chloride 96 L Carbon Dioxide 34 H Creatinine 0.44 L Glucose 114 H Total Protein 8.4 H Urine Protein >=500 H Urine Ketones 20 H Urine Blood MODERATE H Ur Leukocyte Esterase TRACE H Critical Laboratory Results Reviewed: No Critical Results - Radiology Results Critical Radiology Results Reviewed: No Critical Results Discharge - Discharge Clinical Impression: Generalized body aches UTI (urinary tract infection) Qualifiers: Urinary tract infection type: acute cystitis Hematuria presence: with hematuria Qualified Code(s): N30.01 - Acute cystitis with hematuria Knee pain Qualifiers: Chronicity: acute Laterality: bilateral Qualified Code(s): M25.561 - Pain in right knee Headache Qualifiers: Headache type: unspecified Headache chronicity pattern: acute headache Intrac tability: not intractable Qualified Code(s): R51.9 - Headache, unspecified Condition: Stable Disposition: HOME, SELF-CARE Instructions: Urinary Tract Infection ([facility]) Additional Instructions: Please complete antibiotics. You did not want to stay for the result of your renal ultrasound. TATE Rodríguez will call you with the results later today. Otherwise your lab work is very reassuring today. You also had a negative chest x-ray and head CT. Please follow-up with your primary care and your pain management physician tomorrow. Return if you have worsening symptoms. You were tested for coronavirus today. That lab will not come back for another 2 to 3 days. Please quarantine in your home until you know the results. Prescriptions: Nitrofurantoin Monohyd/M-Cryst [Macrobid 100 mg Capsule] 100 mg PO BID #10 cap Referrals: JESSICA ORANTES MD [Primary Care Provider] - Follow up tomorrow
[2020-06-19] MEDS ORDERED: ONDANSETRON HCL INJ/PF 4 MG/2 ML SDV IV ONE ×2 (09:21→12:25)
[2020-06-19] MEDS ORDERED: DIPHENHYDRAMINE HCL 50 MG/ML VIAL IV ONE (09:23)
[2020-06-19] MEDS ORDERED: BUTALB/ACETAMINOPHEN/CAFFEINE 1 TAB EACH PO ONE (09:23)
[2020-06-19] MEDS ORDERED: METOCLOPRAMIDE HCL INJ/PF 10 MG/2 ML SDV IV ONE (09:23)
[2020-06-19] MEDS ORDERED: NORMAL SALINE 500 ML IV ONE (09:24)
[2020-06-19 09:27] LABS: ABSOLUTE BASOPHILS # (AUTO) 0.1 10^3/uL (0.0-0.2); ABSOLUTE LYMPHOCYTES (AUTO) 1.6 10^3/uL (0.5-4.7); ABSOLUTE MONOCYTES (AUTO) 0.4 10^3/uL (0.1-1.4); EOSINOPHILS % (AUTO) 0.3 % (0-6); HEMATOCRIT 39.8 % (36.0-47.0); LYMPHOCYTES % (AUTO) 19.8 % (13-45); MEAN CORPUSCULAR HEMOGLOBIN 28.6 pg (27.0-33.4); MEAN CORPUSCULAR HGB CONC 32.5 g/dL (32.0-36.0); MEAN CORPUSCULAR VOLUME 88 fl (80-97); MONOCYTES % (AUTO) 5.4 % (3-13); PLATELET COUNT 235 10^3/uL (150-450); RED BLOOD COUNT 4.53 10^6/uL (3.72-5.28); RED CELL DISTRIBUTION WIDTH 16.2 % (11.5-14.0); SEGMENTED NEUTROPHILS % (AUTO) 73.5 % (42-78); TOTAL CELLS COUNTED % (AUTO) 100 %; WHITE BLOOD COUNT 8.2 10^3/uL (4.0-10.5)
[2020-06-19 09:38] LABS: ALBUMIN 4.4 g/dL (3.5-5.0); ALKALINE PHOSPHATASE 88 U/L (38-126); ANION GAP 8 (5-19); ASPARTATE AMINO TRANSFERASE 35 U/L (14-36); BILIRUBIN,DIRECT 0.4 mg/dL (0.0-0.4); BILIRUBIN,TOTAL 0.7 mg/dL (0.2-1.3); BLOOD UREA NITROGEN 10 mg/dL (7-20); CALCIUM 9.3 mg/dL (8.4-10.2); CARBON DIOXIDE 34 mmol/L (22-30); CHLORIDE 96 mmol/L (98-107); GLUCOSE 114 mg/dL (75-110); POTASSIUM 3.6 mmol/L (3.6-5.0); TOTAL PROTEIN 8.4 g/dL (6.3-8.2)
--- NOTE | 2020-06-19 09:43 | RADIOLOGY REPORT (SQ) ---
EXAM DESCRIPTION: CHEST SINGLE VIEW IMAGES COMPLETED DATE/TIME: 06/19/2020 9:34 am REASON FOR STUDY: body aches, fever, headache COMPARISON: 11/08/2019. 11/08/2019 and 01/13/2018. EXAM PARAMETERS: NUMBER OF VIEWS: One view. TECHNIQUE: Single frontal radiographic view of the chest acquired. RADIATION DOSE: NA LIMITATIONS: None. FINDINGS: LUNGS AND PLEURA: Chronic elevation of the left hemidiaphragm with blunting of the left co stophrenic angle. No opacities, masses or pneumothorax. No pleural effusion. MEDIASTINUM AND HILAR STRUCTURES: No masses. Contour normal. HEART AND VASCULAR STRUCTURES: Heart normal in size. Normal vasculature. BONES: No acute findings. HARDWARE: None in the chest. OTHER: No other significant finding. IMPRESSION: STABLE CHRONIC CHANGES. NO ACUTE RADIOGRAPHIC FINDING IN THE CHEST. TECHNICAL DOCUMENTATION: JOB ID: [id number] 2010 [employer]- All Rights Reserved Reading location - IP/workstation name: [email or web address]
--- NOTE | 2020-06-19 10:00 | RADIOLOGY REPORT (SQ) ---
EXAM DESCRIPTION: CT HEAD WITHOUT IMAGES COMPLETED DATE/TIME: 06/19/2020 9:44 am REASON FOR STUDY: headache COMPARISON: 10/15/2019. TECHNIQUE: Axial images acquired through the brain without intravenous contrast. Images reviewed wi th bone, brain and subdural windows. Additional sagittal and coronal reconstructions were generated. Images stored on PACS. All CT scanners at this facility use dose modulation, iterative reconstruction, and/or weight based d osing when appropriate to reduce radiation dose to as low as reasonably achievable (ALARA). [facility]: Dose Right [facility]: CareDose [facility]: Dose Right [facility]: Teradose 4D [facility]: [employer] RADIATION DOSE: CT Rad equipment meets quality standard of care and radiation dose reduction techniq ues were employed. CTDIvol: 48.9 mGy. DLP: 861 mGy-cm. mGy. LIMITATIONS: None. FINDINGS: VENTRICLES: Normal size and contour. CEREBRUM: No masses. No hemorrhage. No midline shift. No evidence for acute infarction. Normal gra y/white matter differentiation. No areas of low density in the white matter. CEREBELLUM: No masses. No hemorrhage. No alteration of density. No evidence for acute infarction. EXTRAAXIAL SPACES: No fluid collections. No masses. ORBITS AND GLOBE: No intra- or extraconal masses. Normal contour of globe without masses. CALVARIUM: No fracture. PARANASAL SINUSES: No fluid or mucosal thickening. SOFT TISSUES: No mass or hematoma. OTHER: No other significant finding. IMPRESSION: NORMAL BRAIN CT WITHOUT CONTRAST. EVIDENCE OF ACUTE STROKE: NO. COMMENT: Quality ID # [id number]: Final reports with documentation of one or more dose reduction techniques (e.g., Automated exposure control, adjustment of the mA and/or kV according to patient size, use of iterative reconstruction technique) TECHNICAL DOCUMENTATION: JOB ID: [id number] 2010 [employer]- All Rights Reserved Reading location - IP/workstation name: [email or web address]
[2020-06-19 10:37] LABS: A TYPE INFLUENZA AG NEGATIVE (NEGATIVE); B INFLUENZA AG NEGATIVE (NEGATIVE)
[2020-06-19 10:40] LABS: APPEARANCE,URINE CLEAR; BILIRUBIN,URINE NEGATIVE (NEGATIVE); COLOR,URINE YELLOW; GLUCOSE, URINE NEGATIVE (NEGATIVE); KETONES,URINE 20 mg/dL (NEGATIVE); LEUKOCYTE ESTERASE,URINE TRACE (NEGATIVE); NITRITE,URINE NEGATIVE (NEGATIVE); PROTEIN,URINE >=500 mg/dL (NEGATIVE); URINE SPECIFIC GRAVITY 1.008; UROBILINOGEN,URINE NEGATIVE mg/dL (<2.0)
[2020-06-19] MEDS ORDERED: MORPHINE SULFATE 10 MG/ML INJ IV ONE (12:25)
[2020-06-19 14:35] VITALS: BP 197/99
--- NOTE | 2020-06-19 14:38 | RADIOLOGY REPORT (SQ) ---
EXAM DESCRIPTION: U/S RETROPERITON (RENAL/AORTA) IMAGES COMPLETED DATE/TIME: 06/19/2020 2:16 pm REASON FOR STUDY: back pain, hematuria COMPARISON: None. TECHNIQUE: Dynamic and static grayscale images acquired of the kidneys and bladder and recorded on P ACS. Additional selected color Doppler and spectral images recorded. LIMITATIONS: None. FINDINGS: RIGHT KIDNEY: Normal size. 1.6 cm hypoechoic lesion in the right posterior upper pole, th is does demonstrate some color flow on Doppler interrogation suggesting a solid lesion. No hydronephr osis. No calcifications. LEFT KIDNEY: Normal size. Normal echogenicity. No solid or suspicious masses. No hydronephrosis. No calcifications. BLADDER: Unremarkable. OTHER FINDINGS: No other significant finding. IMPRESSION: 1.6 cm hypoechoic lesion in the right posterior upper pole, this does demonstrate some c olor flow on Doppler interrogation suggesting a complex cystic or partially solid lesion. No hydrone phrosis. COMMENT: Multiphase contrast renal CT recommended to further characterize. TECHNICAL DOCUMENTATION: JOB ID: [id number] [place]-[id number] [employer]- All Rights Reserved Reading location - IP/workstation name: [email or web address]
== END 2020-06-19 14:52 | disposition home or self-care (01) ==
LOC: ER 07:45
DX: M79.10 Myalgia, unspecified site (principal); N30.01 Acute cystitis with hematuria; R51.9 Headache, unspecified; M25.561 Pain in right knee; J44.9 Chronic obstructive pulmonary disease, unspecified; Z99.81 Dependence on supplemental oxygen; G89.29 Other chronic pain; I50.9 Heart failure, unspecified; I11.0 Hypertensive heart disease with heart failure; E11.9 Type 2 diabetes mellitus without complications; Z20.828 Contact with and (suspected) exposure to other viral communicable diseases
CPT/HCPCS: 99285; 96361; 96374; 96375; 36415; 87086; 85025; 80053; 81001; 87804; 71045; 76770; 70450; U0003; A9270; J1200; J2765; J2270; J2405; J7040; C9803; 87635; J3490